=== PATIENT | female | born 2000 | race Hispanic/Latino ===

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

== ENCOUNTER 2023-11-26 17:20 | Emergency (ER) | payer BC, OTHER ==
--- OUTSIDE RECORDS SUMMARY | 2023-11-26 17:25 | XMS REPORT | Continuity of Care Document ---
Author Name Unknown Address [address] [facility] [place] [address] [facility] thconnect Address [address] [facility] [address] [place] [address] Care Team Providers Care City Letter Carrier Name Role Phone Franki Wen Primary Care Physician [phone] [email or web address] Attending Clinician Unavailable MARCELLUS BAILEY JR Attending Clinician Unavailab BUFFY Barboza Attending Clinician Unavailable Buffy Patiño NP Attending Clinician [phone] Leo Lomas DPM, Ronald E Attending Clinician + [phone] Doctor Unassigned, [place] Attending Clinician U Alona Olmedo MD Attending Clinician [phone] ALONA MARTIN Attending Clinician Unavailabl e Pob, [facility] Main Attending Clinician Unavailabl e Only, Adc Test Attending Clinician Unavailable NOE Attending Clinician Unavailable John_Martine Attending Clinician Unavailable Luis Jack Attending Clinician [phone] Cindy Prince Attending Clinician Unavailabl e Mary Mandujano Attending Clinician Unavailabl e Status, Fax Attending Clinician Unavailable Berny Anne Attending Clinician [phone] Manolo Washington Attending Clinician Unavailable Montse Gibbs Attending Clinician Unavailable Luis Mott Attending Clinician [phone] Karla Priest Attending Clinician [phone] Viktor Villanueva Attending Clinician Unavailable Tiffany Fu Attending Clinician Unavailable Adela King Attending Clinician Unavailable Marlin Patiño Attending Clinician Unavailab Fouzia Peters Attending Clinician Unavailable Tyesha Marcos Attending Clinician Unavailable Glo Spring Attending Clinician Unavailabl e Visit, [facility] Nurse Attending Clinician Unava Zaria Mckoy Attending Clinician [phone] Tawnya Davis Attending Clinician + MARCELLUS BAILEY JR Admitting Clinician Unavailab maggie Bailey Jr., Marcellus MARTINEZ Admitting Clinician + [phone] ALONA MARTIN Admitting Clinician Unavailabl e NOE Admitting Clinician Unavailable John_Martine Admitting Clinician Unavailable Luis Mott Unavailable [id number] Payers Payer Name Policy Type Policy Number Effective Date Expirati on Date Source [facility] STAR P [id number] 2018 00:00:00 [place] STAR [id number] 1993 00:00:00 [facility] STAR [id number] 2023 00:00:00 [facility] (MEDICAID REPLACEMENT - HMO) [id number] [facility] (MEDICAID REPLACEMENT - HMO) [id number] Problems Condition Name Condition Details Condition Category Status Onset Date Resolution Date Last Treatment Date Treating Clinician Comments Source Exposure to COVID-19 coronaviru s Condition Active 2019-03 00:00: 00 2020-01-25 08:44:39 Luis Mott [facility] Obesity Condition Active 2019-03 00:00: 00 2020-01-25 08:44:00 Luis Mott [facility] BMI 32.0-32.9 Condition Active 2019-03 00:00: 00 2020-01-25 08:44:00 Luis Mott [facility] Contracept ion management Condition Active 2019-03 00:00: 00 2020-01-25 08:44:00 Luis Mott [facility] Foot pain, left Condition Active 2019-03 00:00: 00 2020-01-25 08:44:00 Luis Mott [facility] Other general counseling and advice for contracept breanna management Other general counseling and advice for contracept breanna management Disease Active 04-20 00:00: 00 [facility] Irregular menstrual cycle Irregular menstrual cycle Disease Active 2017-03 00:00: 00 [facility] Well woman exam Well woman exam Disease Active 2017-03 00:00: 00 [facility] Obesity (BMI 30-39.9) Obesity (BMI 30-39.9) Disease Active 2017-03 00:00: 00 [facility] Migraine with aura Migraine with aura Disease Active 2017-03 00:00: 00 [facility] Allergies, Adverse Reactions, Alerts Allergy Name Allergy Type Status Severity Reaction(s) Onset Date Inactive Date Treating Clinician Comments Source NO KNOWN ALLERGIE S Drug Class Active [facility] Social History Social Habit Start Date Stop Date Quantity Comments Source History of tobacco use Passive smoker [facility] intake 2023-02-14 00:00:00 2023-02-14 00:00:00 Current non-drinker of alcohol (finding) [facility] History of Social function 2021-10-26 00:00:00 2021-10-26 00:00:00 [facility] Exposure to SARS-CoV-2 (event) 2021-10-14 00:00:00 2021-10-24 15:05:00 Not sure [facility] time of call 2020-04-28 10:11:46 2020-04-28 10:11:46 04/28/2020 10:12 AM [facility] social history reviewed E&M 2020-02-03 08:23:20 2020-02-03 08:23:20 reviewed - no changes required [facility] smoking, advice to quit 2020-02-03 08:23:20 2020-02-03 08:23:20 Yes [facility] Weight Management Counseling Provided 2020-02-03 08:23:20 2020-02-03 08:23:20 Follow Up Done [facility] if the patient is using/has used a vaping item, Current, Former, Never Used, Not asked 2020-01-25 08:43:08 2020-01-25 08:43:08 No [facility] social history E&M 2020-01-18 09:03:26 2020-01-18 09:03:26 Joshua lives with her professional care givers. She lives at children's home in [place]. Her parents are Single. [facility] living situation (place) description 2020-01-18 09:03:26 2020-01-18 09:03:26 children's home [facility] sexual orientation 2020-01-18 09:03:26 2020-01-18 09:03:26 Bisexual [facility] is there any chance that you could be ? 2020-01-18 09:03:26 2020-01-18 09:03:26 No [facility] Tobacco use and exposure 2019-04-20 00:00:00 2019-04-20 00:00:00 Smokeless tobacco non-user [facility] Tobacco Comment 2012-07-14 00:00:00 2012-07-14 00:00:00 smoke exposure-outside [facility] Sex Assigned At 2000 00:00:00 2000 00:00:00 [facility] Smoking Status Start Date Stop Date Source Never smoked tobacco [facility] Medications Ordered Medication Name Filled Medication Name Start Date Stop Date Current Medication? Ordering Clinician Indication Dosage Frequency Signature (SIG) Comments Components Source cephALEXin (KEFLEX) capsule 500 mg 2022-03 02:00: 00 02-15 02:20 :00 No 500mg 500 mg, Oral, ONCE, 1 dose, On Teresa 02/14/23 at 2000, DONITA
Re ason for Anti-Infec tive: Documented Infection< br>Documen gaby Infection Site: Urine
D uration of Therapy: Other (see Comments) [facility] pantoprazol e (PROTONIX) injection 40 mg 2022-03 23:15: 00 02-15 00:28 :00 No 40mg 40 mg, Slow IV Push, ONCE, 1 dose, On Teresa 02/14/23 at 1715 [facility] proMETHazin e (PHENERGAN) 12.5 mg in NS 50 mL IV piggyback (CNR) 2022-03 22:30: 00 02-15 00:47 :00 No 12.5mg 12.5 mg, IV Piggyback, at 200 mL/hr Administer over 15 Minutes, ONCE, 1 dose, On Teresa 02/14/23 at 1630, DONITA [facility] proMETHazin e 25 mg tablet 2022-03 00:00: 00 Yes [id number] 25mg Take 1 tablet by mouth every 6 (six) hours as needed for Nausea and Vomiting (N/V). [facility] cephALEXin 500 mg capsule 2022-03 00:00: 00 02-20 05:59 :00 No [id number] 500mg Take 1 capsule by mouth 4 (four) times daily for 5 days. [facility] lactated ringers IV infusion 1,000 mL 10-26 14:00: 00 Yes 1000mL at 100 mL/hr, 1,000 mL, IV Infusion, CONTINUOUS , Starting on Teresa 10/26/21 at 0900, Until Discontinu ed, Routine, PACU [facility] HYDROmorphO ne (DILAUDID) injection 0.2 mg 10-26 13:50: 24 Yes .2mg 0.2 mg, Slow IV Push, Q5MIN PRN, 10 doses, Starting on Teresa 10/26/21 at 0850, Until Discontinu ed, Routine, Pain (scale 7-10), PACU
Us e approved by (Faculty): PACU USE -ANESTHESI A SERVICE-HY DROMORPHON E INJECTIONS [facility] FENTanyl PF (SUBLIMAZE (PF)) injection 25 mcg 10-26 13:50: 24 Yes 25ug 25 mcg, Slow IV Push, Q5MIN PRN, 4 doses, Starting on Teresa 10/26/21 at 0850, Until Discontinu ed, Routine, Pain (scale 4-6), PACU [facility] ondansetron (ZOFRAN (PF)) injection 4 mg 10-26 13:50: 24 Yes 4mg 4 mg, Slow IV Push, PRN, 1 dose, Starting on Teresa 10/26/21 at 0850, Until Discontinu ed, Routine, Nausea and Vomiting (N/V), PACU [facility] bupivacaine liposome (PF) (EXPAREL (PF)) 1.3 % (13.3 mg/mL) injection 10-26 13:28: 00 10-26 13:42 :04 No PRN, Starting on Teresa 10/26/21 at 0828, Until Teresa 10/26/21 at 0842, Routine, Intra-op [facility] sodium chloride 0.9 % irrigation solution 10-26 13:01: 00 10-26 13:42 :04 No PRN, Starting on Teresa 10/26/21 at 0801, Until Teresa 10/26/21 at 0842, Intra-op [facility] bupivacaine (preserv free) 0.5% (SENSORCAIN E MPF) 0.5 % (5 mg/mL) injection 10-26 12:43: 00 10-26 13:42 :04 No PRN, Starting on Teresa 10/26/21 at 0743, Until Teresa 10/26/21 at 0842, Routine, Intra-op [facility] lactated ringers IV infusion 1,000 mL 10-26 11:30: 00 10-26 11:55 :00 No 1000mL at 42 mL/hr, 1,000 mL, IV Infusion, ONCE, 1 dose, On Teresa 10/26/21 at 0630, Routine, DSU Pre-op [facility] IRON, FERROUS SULFATE, ORAL 10-26 09:27: 20 Yes [id number] Take by mouth. [facility] aspirin 325 mg tablet 10-26 00:00: 00 11-24 04:59 :00 No [id number] 325mg Take 1 tablet by mouth in the morning and 1 tablet in the evening. Take with meals. Do all this for 28 days. [facility] IRON, FERROUS SULFATE, ORAL 10-19 15:27: 36 Yes [id number] Take by mouth. [facility] norethindro ne 0.35 mg tablet 2017-03 00:00: 00 Yes [id number] 1{tbl} Take 1 tablet by mouth daily. [facility] loratadine (CLARITIN) 10 mg tablet 2012-03 00:00: 00 Yes 10mg Take 1 Tab by mouth daily. [facility] cetirizine 10 mg tablet Take 1 tablet every day by oral route. cetirizine 10 mg tablet Take 1 tablet every day by oral route. No 1 Q1D cetirizine 10 mg tablet Take 1 tablet every day by oral route. [facility] ciprofloxac in 500 mg tablet Take 1 tablet every 12 hours by oral route for 7 days. ciprofloxac in 500 mg tablet Take 1 tablet every 12 hours by oral route for 7 days. No 1 Q12H ciprofloxa sofi 500 mg tablet Take 1 tablet every 12 hours by oral route for 7 days. [facility] fluticasone propionate 50 mcg/actuati on nasal spray,suspe nsion Candor 1 spray every day by intranasal route. fluticasone propionate 50 mcg/actuati on nasal spray,suspe nsion Candor 1 spray every day by intranasal route. No 1spray( s) Q1D fluticason e propionate 50 mcg/actuat ion nasal spray,susp ension Candor 1 spray every day by intranasal route. [facility] Immunizations Ordered Immunization Name Filled Immunization Name Date Status Comments Source Influenza Virus Vaccine Quad .5 mL IM 6+ MO 2019-04-20 00:00:00 Completed [facility] Influenza Virus Vaccine Quad .5 mL IM 6+ MO 2019-04-20 00:00:00 Completed [facility] Influenza Virus Vaccine Quad .5 mL IM 6+ MO 2019-04-20 00:00:00 Completed [facility] Influenza Virus Vaccine Quad .5 mL IM 6+ MO 2019-04-20 00:00:00 Completed [facility] Influenza Virus Vaccine Quad .5 mL IM 6+ MO 2019-04-20 00:00:00 Completed [facility] influenza, unspecified formulation 2019-04-20 00:00:00 Completed [facility] meningococcal B, unspecified 2018-12-01 00:00:00 Completed [facility] meningococcal B, unspecified 2018 00:00:00 Completed [facility] meningococcal ACWY, unspecified formulation 2018-04-07 00:00:00 Completed [facility] influenza, unspecified formulation 2016-03-15 00:00:00 Completed [facility] HPV, unspecified formulation 2016-03-15 00:00:00 Completed [facility] HPV 2014-11-03 00:00:00 Completed [facility] HPV 2014-11-03 00:00:00 Completed [facility] HPV 2014-11-03 00:00:00 Completed [facility] HPV 2014-11-03 00:00:00 Completed [facility] HPV 2014-11-03 00:00:00 Completed [facility] HPV, unspecified formulation 2014-11-03 00:00:00 Completed [facility] Influenza Virus Vaccine Nasal 2012-12-24 00:00:00 Completed [facility] TDAP 2012-12-24 00:00:00 Completed [facility] Meningococcal Polysaccharide (groups A, C, Y and W-135) conjugate vaccine (MCV4P) 2012-12-24 00:00:00 Completed [facility] HPV 2012-12-24 00:00:00 Completed [facility] Influenza Virus Vaccine Nasal 2012-12-24 00:00:00 Completed [facility] TDAP 2012-12-24 00:00:00 Completed [facility] Meningococcal Polysaccharide (groups A, C, Y and W-135) conjugate vaccine (MCV4P) 2012-12-24 00:00:00 Completed [facility] HPV 2012-12-24 00:00:00 Completed [facility] Influenza Virus Vaccine Nasal 2012-12-24 00:00:00 Completed [facility] TDAP 2012-12-24 00:00:00 Completed [facility] Meningococcal Polysaccharide (groups A, C, Y and W-135) conjugate vaccine (MCV4P) 2012-12-24 00:00:00 Completed [facility] HPV 2012-12-24 00:00:00 Completed [facility] Influenza Virus Vaccine Nasal 2012-12-24 00:00:00 Completed [facility] TDAP 2012-12-24 00:00:00 Completed [facility] Meningococcal Polysaccharide (groups A, C, Y and W-135) conjugate vaccine (MCV4P) 2012-12-24 00:00:00 Completed [facility] HPV 2012-12-24 00:00:00 Completed [facility] Influenza Virus Vaccine Nasal 2012-12-24 00:00:00 Completed [facility] TDAP 2012-12-24 00:00:00 Completed [facility] Meningococcal Polysaccharide (groups A, C, Y and W-135) conjugate vaccine (MCV4P) 2012-12-24 00:00:00 Completed [facility] HPV 2012-12-24 00:00:00 Completed [facility] Tdap 2012-12-24 00:00:00 Completed [facility] meningococcal ACWY, unspecified formulation 2012-12-24 00:00:00 Completed [facility] influenza, unspecified formulation 2012-12-24 00:00:00 Completed [facility] HPV, unspecified formulation 2012-12-24 00:00:00 Completed [facility] influenza, unspecified formulation 2011-12-20 00:00:00 Completed [facility] influenza, unspecified formulation 2010-12-14 00:00:00 Completed [facility] influenza, unspecified formulation 2009-02-24 00:00:00 Completed [facility] Varicella (varivax)(chicken pox) 2007-04-15 00:00:00 Completed [facility] varicella 2007-04-15 00:00:00 Completed [facility] Influenza Virus Vaccine - Whole 2007-01-28 00:00:00 Completed [facility] influenza, unspecified formulation 2007-01-28 00:00:00 Completed [facility] MMR 2005-10-31 00:00:00 Completed [facility] Polio (IPV/OPV) 2005-10-31 00:00:00 Completed [facility] DTAP 2005-10-31 00:00:00 Completed [facility] polio, unspecified formulation 2005-10-31 00:00:00 Completed [facility] 03 2005-10-31 00:00:00 Completed [facility] DTaP, unspecified formulation 2005-10-31 00:00:00 Completed [facility] HEPATITIS A 2005-06-19 00:00:00 Completed [facility] Hep A, unspecified formulation 2005-06-19 00:00:00 Completed [facility] HEPATITIS A 2004-12-01 00:00:00 Completed [facility] Hep A, unspecified formulation 2004-12-01 00:00:00 Completed [facility] DTAP 2003-02-22 00:00:00 Completed [facility] HIB 4 Dose Schedule 2003-02-22 00:00:00 Completed [facility] Pneumococcal 7 Conjugate, PCV7 (Prevnar7) 2003-02-22 00:00:00 Completed [facility] DTAP 2003-02-22 00:00:00 Completed [facility] HIB 4 Dose Schedule 2003-02-22 00:00:00 Completed [facility] Pneumococcal 7 Conjugate, PCV7 (Prevnar7) 2003-02-22 00:00:00 Completed [facility] DTAP 2003-02-22 00:00:00 Completed [facility] HIB 4 Dose Schedule 2003-02-22 00:00:00 Completed [facility] Pneumococcal 7 Conjugate, PCV7 (Prevnar7) 2003-02-22 00:00:00 Completed [facility] DTAP 2003-02-22 00:00:00 Completed [facility] HIB 4 Dose Schedule 2003-02-22 00:00:00 Completed [facility] Pneumococcal 7 Conjugate, PCV7 (Prevnar7) 2003-02-22 00:00:00 Completed [facility] DTAP 2003-02-22 00:00:00 Completed [facility] HIB 4 Dose Schedule 2003-02-22 00:00:00 Completed [facility] Pneumococcal 7 Conjugate, PCV7 (Prevnar7) 2003-02-22 00:00:00 Completed [facility] pneumococcal, unspecified formulation 2003-02-22 00:00:00 Completed [facility] Hib, unspecified formulation 2003-02-22 00:00:00 Completed [facility] DTaP, unspecified formulation 2003-02-22 00:00:00 Completed [facility] DTAP 2002-11-18 00:00:00 Completed [facility] HIB 4 Dose Schedule 2002-11-18 00:00:00 Completed [facility] Hep B, Adol or Pedi Dosage 2002-11-18 00:00:00 Completed [facility] MMR 2002-11-18 00:00:00 Completed [facility] Polio (IPV/OPV) 2002-11-18 00:00:00 Completed [facility] Varicella (varivax)(chicken pox) 2002-11-18 00:00:00 Completed [facility] DTAP 2002-11-18 00:00:00 Completed [facility] HIB 4 Dose Schedule 2002-11-18 00:00:00 Completed [facility] Hep B, Adol or Pedi Dosage 2002-11-18 00:00:00 Completed [facility] MMR 2002-11-18 00:00:00 Completed [facility] Polio (IPV/OPV) 2002-11-18 00:00:00 Completed [facility] Varicella (varivax)(chicken pox) 2002-11-18 00:00:00 Completed [facility] DTAP 2002-11-18 00:00:00 Completed [facility] HIB 4 Dose Schedule 2002-11-18 00:00:00 Completed [facility] Hep B, Adol or Pedi Dosage 2002-11-18 00:00:00 Completed [facility] MMR 2002-11-18 00:00:00 Completed [facility] Polio (IPV/OPV) 2002-11-18 00:00:00 Completed [facility] Varicella (varivax)(chicken pox) 2002-11-18 00:00:00 Completed [facility] DTAP 2002-11-18 00:00:00 Completed [facility] HIB 4 Dose Schedule 2002-11-18 00:00:00 Completed [facility] Hep B, Adol or Pedi Dosage 2002-11-18 00:00:00 Completed [facility] MMR 2002-11-18 00:00:00 Completed [facility] Polio (IPV/OPV) 2002-11-18 00:00:00 Completed [facility] Varicella (varivax)(chicken pox) 2002-11-18 00:00:00 Completed [facility] DTAP 2002-11-18 00:00:00 Completed [facility] HIB 4 Dose Schedule 2002-11-18 00:00:00 Completed [facility] Hep B, Adol or Pedi Dosage 2002-11-18 00:00:00 Completed [facility] MMR 2002-11-18 00:00:00 Completed [facility] Polio (IPV/OPV) 2002-11-18 00:00:00 Completed [facility] Varicella (varivax)(chicken pox) 2002-11-18 00:00:00 Completed [facility] varicella 2002-11-18 00:00:00 Completed [facility] polio, unspecified formulation 2002-11-18 00:00:00 Completed [facility] 03 2002-11-18 00:00:00 Completed [facility] Hib, unspecified formulation 2002-11-18 00:00:00 Completed [facility] Hep B, unspecified formulation 2002-11-18 00:00:00 Completed [facility] DTaP, unspecified formulation 2002-11-18 00:00:00 Completed [facility] DTAP 2002-04-10 00:00:00 Completed [facility] HIB 4 Dose Schedule 2002-04-10 00:00:00 Completed [facility] Polio (IPV/OPV) 2002-04-10 00:00:00 Completed [facility] DTAP 2002-04-10 00:00:00 Completed [facility] HIB 4 Dose Schedule 2002-04-10 00:00:00 Completed [facility] Polio (IPV/OPV) 2002-04-10 00:00:00 Completed [facility] DTAP 2002-04-10 00:00:00 Completed [facility] HIB 4 Dose Schedule 2002-04-10 00:00:00 Completed [facility] Polio (IPV/OPV) 2002-04-10 00:00:00 Completed [facility] DTAP 2002-04-10 00:00:00 Completed [facility] HIB 4 Dose Schedule 2002-04-10 00:00:00 Completed [facility] Polio (IPV/OPV) 2002-04-10 00:00:00 Completed [facility] DTAP 2002-04-10 00:00:00 Completed [facility] HIB 4 Dose Schedule 2002-04-10 00:00:00 Completed [facility] Polio (IPV/OPV) 2002-04-10 00:00:00 Completed [facility] polio, unspecified formulation 2002-04-10 00:00:00 Completed [facility] Hib, unspecified formulation 2002-04-10 00:00:00 Completed [facility] DTaP, unspecified formulation 2002-04-10 00:00:00 Completed [facility] DTAP 2001 00:00:00 Completed [facility] HIB 4 Dose Schedule 2001 00:00:00 Completed [facility] Hep B, Adol or Pedi Dosage 2001 00:00:00 Completed [facility] Polio (IPV/OPV) 2001 00:00:00 Completed [facility] Pneumococcal 7 Conjugate, PCV7 (Prevnar7) 2001 00:00:00 Completed [facility] DTAP 2001 00:00:00 Completed [facility] HIB 4 Dose Schedule 2001 00:00:00 Completed [facility] Hep B, Adol or Pedi Dosage 2001 00:00:00 Completed [facility] Polio (IPV/OPV) 2001 00:00:00 Completed [facility] Pneumococcal 7 Conjugate, PCV7 (Prevnar7) 2001 00:00:00 Completed [facility] DTAP 2001 00:00:00 Completed [facility] HIB 4 Dose Schedule 2001 00:00:00 Completed [facility] Hep B, Adol or Pedi Dosage 2001 00:00:00 Completed [facility] Polio (IPV/OPV) 2001 00:00:00 Completed [facility] Pneumococcal 7 Conjugate, PCV7 (Prevnar7) 2001 00:00:00 Completed [facility] DTAP 2001 00:00:00 Completed [facility] HIB 4 Dose Schedule 2001 00:00:00 Completed [facility] Hep B, Adol or Pedi Dosage 2001 00:00:00 Completed [facility] Polio (IPV/OPV) 2001 00:00:00 Completed [facility] Pneumococcal 7 Conjugate, PCV7 (Prevnar7) 2001 00:00:00 Completed [facility] DTAP 2001 00:00:00 Completed [facility] HIB 4 Dose Schedule 2001 00:00:00 Completed [facility] Hep B, Adol or Pedi Dosage 2001 00:00:00 Completed [facility] Polio (IPV/OPV) 2001 00:00:00 Completed [facility] Pneumococcal 7 Conjugate, PCV7 (Prevnar7) 2001 00:00:00 Completed [facility] polio, unspecified formulation 2001 00:00:00 Completed [facility] pneumococcal, unspecified formulation 2001 00:00:00 Completed [facility] Hib, unspecified formulation 2001 00:00:00 Completed [facility] Hep B, unspecified formulation 2001 00:00:00 Completed [facility] DTaP, unspecified formulation 2001 00:00:00 Completed [facility] Hep B, Adol or Pedi Dosage 2001 00:00:00 Completed [facility] Hep B, Adol or Pedi Dosage 2001 00:00:00 Completed [facility] Hep B, Adol or Pedi Dosage 2001 00:00:00 Completed [facility] Hep B, Adol or Pedi Dosage 2001 00:00:00 Completed [facility] Hep B, Adol or Pedi Dosage 2001 00:00:00 Completed [facility] Hep B, unspecified formulation 2001 00:00:00 Completed [facility] Influenza Virus Vaccine Nasal Unknown Completed [facility] TDAP Unknown Completed [facility] Meningococcal Polysaccharide (groups A, C, Y and W-135) conjugate vaccine (MCV4P) Unknown Completed [facility] HPV Unknown Completed [facility] DTAP Unknown Completed [facility] DTAP Unknown Completed [facility] DTAP Unknown Completed [facility] DTAP Unknown Completed [facility] HIB 4 Dose Schedule Unknown Completed [facility] HIB 4 Dose Schedule Unknown Completed [facility] HIB 4 Dose Schedule Unknown Completed [facility] HIB 4 Dose Schedule Unknown Completed [facility] Hep B, Adol or Pedi Dosage Unknown Completed [facility] Hep B, Adol or Pedi Dosage Unknown Completed [facility] Hep B, Adol or Pedi Dosage Unknown Completed [facility] MMR Unknown Completed [facility] Polio (IPV/OPV) Unknown Completed [facility] Polio (IPV/OPV) Unknown Completed [facility] Polio (IPV/OPV) Unknown Completed [facility] Varicella (varivax)(chicken pox) Unknown Completed [facility] Pneumococcal 7 Conjugate, PCV7 (Prevnar7) Unknown Completed [facility] Pneumococcal 7 Conjugate, PCV7 (Prevnar7) Unknown Completed [facility] HPV Unknown Completed [facility] Influenza Virus Vaccine Quad .5 mL IM 6+ MO (FLUZONE/FLULAVAL/FL UARIX) Unknown Completed [facility] Vital Signs Vital Name Observation Time Observation Value Comments S ource Systolic blood pressure 2023-02-15 02:00:00 115 mm[Hg] [facility] Diastolic blood pressure 2023-02-15 02:00:00 67 mm[Hg] [facility] Heart rate 2023-02-15 02:00:00 79 /min [facility] Body temperature 2023-02-15 02:00:00 36.44 Mraía [facility] Oxygen saturation in Arterial blood by Pulse oximetry 2023-02-15 02:00:00 100 /min [facility] Respiratory rate 2023-02-15 00:15:00 16 /min [facility] Body height 2023-02-14 22:00:00 170.2 cm [facility] Body weight 2023-02-14 22:00:00 100.426 kg [facility] BMI 2023-02-14 22:00:00 34.68 kg/m2 [facility] Heart rate 2021-10-26 14:16:00 83 /min [facility] Respiratory rate 2021-10-26 14:16:00 11 /min [facility] Oxygen saturation in Arterial blood by Pulse oximetry 2021-10-26 14:16:00 98 /min [facility] Systolic blood pressure 2021-10-26 14:13:00 139 mm[Hg] [facility] Diastolic blood pressure 2021-10-26 14:13:00 72 mm[Hg] [facility] Body temperature 2021-10-26 13:42:00 36.83 María [facility] Body height 2021-10-23 13:24:00 168.9 cm [facility] Body weight 2021-10-23 13:24:00 95.3 kg [facility] BMI 2021-10-23 13:24:00 33.41 kg/m2 [facility] Systolic blood pressure 2021-10-26 11:54:00 139 mm[Hg] [facility] Diastolic blood pressure 2021-10-26 11:54:00 77 mm[Hg] [facility] Heart rate 2021-10-26 11:54:00 92 /min [facility] Body temperature 2021-10-26 11:54:00 37.33 María [facility] Respiratory rate 2021-10-26 11:54:00 20 /min [facility] Oxygen saturation in Arterial blood by Pulse oximetry 2021-10-26 11:54:00 98 /min [facility] Body height 2021-10-23 13:24:00 168.9 cm [facility] Body weight 2021-10-23 13:24:00 95.3 kg [facility] BMI 2021-10-23 13:24:00 33.41 kg/m2 [facility] Height 2020-12-03 00:00:00 5.7 [in_i] [facility] BMI (Body Mass Index) 2020-12-03 00:00:00 4517.1 kg/m2 [facility] BP Systolic 2020-12-03 00:00:00 136 mm[Hg] [facility] Body Weight 2020-12-03 00:00:00 3340.8 [oz_av] [facility] BP Diastolic 2020-12-03 00:00:00 87 mm[Hg] [facility] temperature site 2020-02-03 08:23:20 temporal [facility] temperature E&M 2020-02-03 08:23:20 97.7 [degF] [facility] temperature E&M 2020-01-25 08:43:08 97.5 [degF] [facility] height percentile 2020-01-18 09:03:26 58 [facility] height E&M 2020-01-18 09:03:26 64.76 [in_i] [facility] weight percentile 2020-01-18 09:03:26 97 [facility] weight in kilograms E&M 2020-01-18 09:03:26 86.6 kg [facility] weight E&M 2020-01-18 09:03:26 190.52 [lb_av] L [facility] blood pressure, diastolic 2020-01-18 09:03:26 70 mm[Hg] [facility] blood pressure, systolic 2020-01-18 09:03:26 107 mm[Hg] [facility] temperature site 2020-01-18 09:03:26 oral [facility] respiratory rate E&M 2020-01-18 09:03:26 20 /min [facility] pulse rate 2020-01-18 09:03:26 117 /min [facility] oxygen saturation, oximetry 2020-01-18 09:03:26 98 /min [facility] Procedures Procedure Date / Time Performed Performing Clinician Source URINALYSIS 2023-02-15 00:37:00 Buffy Patiño [facility] POCT TEST 2023-02-15 00:36:00 Buffy Patiño [facility] LIPASE 2023-02-14 22:54:00 Buffy Patiño [facility] COMP. METABOLIC PANEL (62575) 2023-02-14 22:54:00 Bfufy Patiño [facility] CBC WITH DIFF 2023-02-14 22:54:00 Buffy Patiño [facility] ASSIGNMENT OF BENEFITS 2023-02-14 22:25:53 Docto r Unassigned, [place] [facility] CONSENT/REFUSAL FOR DIAGNOSIS AND TREATMENT 2023-02-14 21:40:00 Doctor Unassigned, [place] [facility] TIME OR (NON-REPORTABLE) 2021-10-26 13:35:00 Marcellus Bailey [facility] FL TIME OR (NON-REPORTABLE) 2021-10-26 13:35:00 Marcellus Bailey [facility] METATARSAL OSTEOTOMY 2021-10-26 12:18:00 Marcellus Bailey [facility] URINALYSIS 2021-10-26 11:43:00 Marcellus Bailey [facility] URINALYSIS 2021-10-26 11:43:00 Marcellus Bailey [facility] POCT TEST 2021-10-26 11:30:00 Michael Ayala [facility] POCT TEST 2021-10-26 11:30:00 Michael Ayala [facility] PATIENT QUESTIONNAIRE 2021-10-26 05:01:00 Doctor Unassigned, [place] [facility] EKG (SCANNED DOCUMENTS) 2021-10-25 05:01:00 Doct or Unassigned, [place] [facility] CBC WITH DIFF 2021-10-24 20:38:00 Marcellus Bailey [facility] PROTHROMBIN TIME / INR 2021-10-24 20:38:00 Michelle Bailey [facility] ACTIVATED PARTIAL THRMPLAS CHIRAG 2021-10-24 20:38:00 Marcellus Bailey [facility] COVID-19 (ID NOW RAPID TESTING) 2021-10-24 20:38:00 Marcellus Bailey [facility] COMP. METABOLIC PANEL (32876) 2021-10-24 20:38:00 Marcellus Bailey [facility] LAB ONLY COVID INTERPRETATION 2021-10-24 20:38:00 Marcellus Bailey [facility] CONSENT/REFUSAL FOR DIAGNOSIS AND TREATMENT 2021-10-24 20:04:22 Doctor Unassigned, [place] [facility] CONSENT/REFUSAL FOR DIAGNOSIS AND TREATMENT 2021-10-24 20:04:22 Doctor Unassigned, [place] [facility] ASSIGNMENT OF BENEFITS 2021-10-24 20:02:23 Docto r Unassigned, [place] [facility] ASSIGNMENT OF BENEFITS 2021-10-24 20:02:23 Docto r Unassigned, [place] [facility] NOTICE OF PRIVACY PRACTICES 2021-10-24 20:01:58 Doctor Unassigned, [place] [facility] NOTICE OF PRIVACY PRACTICES 2021-10-24 20:01:58 Doctor Unassigned, [place] [facility] CONSENT/REFUSAL FOR DIAGNOSIS AND TREATMENT 2021-10-24 20:01:32 Doctor Unassigned, [place] [facility] CONSENT/REFUSAL FOR DIAGNOSIS AND TREATMENT 2021-10-24 20:01:32 Doctor Unassigned, [place] [facility] ASSIGNMENT OF BENEFITS 2021-10-24 20:01:09 Docto r Unassigned, [place] [facility] ASSIGNMENT OF BENEFITS 2021-10-24 20:01:09 Docto r Unassigned, [place] [facility] EXTERNAL PROVIDER RECORDS 2021-10-19 05:01:00 Do ctor Unassigned, [place] [facility] EXTERNAL PROVIDER RECORDS 2021-10-19 05:01:00 Do ctor Unassigned, [place] [facility] Urinalysis - - In House 2020-01-18 09:16:36 Luis Mott [facility] Planned Activity Planned Date Details Comments Source Diagnostic Test Pending 2020-12-03 00:00:00 rapid influenza virus A + B and SARS CoV + SARS CoV 2 Ag panel, [place], upper respiratory specimen [code = rapid influenza virus A + B and SARS CoV + SARS CoV 2 Ag panel, IA, upper respiratory specimen] [facility] Instructions [facility] Encounters Start Date/Time End Date/Time Encounter Type Admission Type Attending [facility] Facility Care Department Encounter ID Source 2022-02-26 20:41:13 Outpatient quoc [facility] [id number] [facility] 2022-02-09 20:11:07 [facility] [id number] [facility] 2021-10-20 09:34:57 Outpatient MARCELLUS CURIEL JR [facility] S[facility] [id number] [facility] 2023-02-14 16:04:00 2023-02-14 20:28:00 Emergency X BUFFY PATIÑO [facility] ERT [id number] [facility] 2023-02-14 16:04:00 2023-02-14 20:28:00 Emergency Sourav Buffy G [facility] [id number] [id number] [facility] 2021-10-26 06:27:00 2021-10-26 09:26:00 Outpatient MARCELLUS CURIEL JR [facility] [id number] [facility] 2021-10-26 06:27:00 2021-10-26 09:26:00 Hospital Encounter Marcellus Bailey [facility] [id number] 4.2.7.2.686 [id number] [facility] 2021-10-26 07:15:00 2021-10-26 08:41:00 Surgery Marcellus Bailey [facility] [place] [id number] [id number] [id number] [id number] [facility] 2021-10-26 00:00:00 2021-10-26 00:00:00 Orders Only Doctor Unassigned, [place] [facility] [id number] [id number] 4.2.7.2.686 [id number] [facility] 2021-10-25 17:53:00 2021-10-25 23:59:00 Hospital Encounter Alona Martin [facility] [id number] [id number] 4.2.7.2.686 [id number] [facility] 2021-10-25 00:00:00 2021-10-25 23:59:00 Outpatient ALONA MENA [facility] [id number] [facility] 2021-10-24 15:07:05 2021-10-24 23:59:00 Hospital Encounter Marcellus Bailey [facility] [id number] 4.2.7.2.686 [id number] [facility] 2021-10-24 16:00:00 2021-10-24 16:15:00 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, Adc Lab Main Marcellus Bailey [facility] [id number] [id number] 4.2.7.2.686 [id number] [facility] 2021-10-24 15:45:00 2021-10-24 16:00:00 Laboratory Only Only, Adc Test Leo Marcellus Alvarado [facility] [id number] [id number] [id number] [id number] [facility] 2021-10-24 15:07:05 2021-10-24 15:07:05 Outpatient MARCELLUS CURIEL JR [facility] [id number] [facility] 2021-10-24 15:08:27 2021-10-24 15:06:00 Outpatient MARCELLUS CURIEL JR [facility] [id number] [facility] 2021-09-26 04:13:00 2021-09-26 04:13:00 Outpatient NOE [facility] [id number] [facility] 2020-12-03 00:00:00 2020-12-03 00:00:00 Cherelle Lopez, [employer]: [address] [place] [address], [place] [address] , Ph. John_Martine [facility] [id number] [facility] 2020-05-27 00:00:00 2020-05-27 00:00:00 Letter (Out) Luis Mott [facility] ..114 350..13.10 [id number] [id number] [facility] 2020-04-28 00:00:00 2020-04-28 00:00:00 Office Visit Cindy Prince Vianey [facility] Encounter/ [id number] [facility] 2020-04-25 00:00:00 2020-04-25 00:00:00 Orders Only Doctor Unassigned, [place] [facility] .84.114 [id number] 4.2.7.2.686 [id number] [facility] 2020-04-25 00:00:00 2020-04-25 00:00:00 Office Visit Status, Fax [facility] Encounter/ [id number] [facility] 2020-04-25 00:00:00 2020-04-25 00:00:00 Office Visit Status, Fax [facility] Encounter/ [id number] [facility] 2020-04-25 00:00:00 2020-04-25 00:00:00 Office Visit Status, Fax [facility] Encounter/ [id number] [facility] 2020-02-29 00:00:00 2020-02-29 00:00:00 Office Visit Berny Anne [facility] Encounter/ [id number] [facility] 2020-02-25 00:00:00 2020-02-25 00:00:00 Office Visit Status, Fax [facility] Encounter/ [id number] [facility] 2020-02-25 00:00:00 2020-02-25 00:00:00 Office Visit Status, Fax [facility] Encounter/ [id number] [facility] 2020-02-25 00:00:00 2020-02-25 00:00:00 Office Visit Status, Fax [facility] Encounter/ [id number] [facility] 2020-02-08 00:00:00 2020-02-08 00:00:00 Office Visit Berny Anne [facility] Encounter/ [id number] [facility] 2020-02-03 00:00:00 2020-02-03 00:00:00 Office Visit Berny Anne [facility] Encounter/ [id number] [facility] 2020-02-03 00:00:00 2020-02-03 00:00:00 Office Visit Berny Anne Elia Franklin, Ciara [facility] Encounter/ [id number] [facility] 2020-02-03 00:00:00 2020-02-03 00:00:00 Office Visit Luis Mott [facility] Encounter/ [id number] [facility] 2020-02-01 00:00:00 2020-02-01 00:00:00 Office Visit Reyes Hamilton Nolviahema [facility] Encounter/ [id number] [facility] 2020-01-27 00:00:00 2020-01-27 00:00:00 Office Visit Karla Priest [facility] Encounter/ [id number] [facility] 2020-01-26 00:00:00 2020-01-26 00:00:00 [facility] [id number] [facility] 2020-01-25 00:00:00 2020-01-25 00:00:00 Office Visit Luis Mott [facility] Encounter/ [id number] [facility] 2020-01-25 00:00:00 2020-01-25 00:00:00 Office Visit Luis Mott Rachel [facility] Encounter/ [id number] [facility] 2020-01-25 00:00:00 2020-01-25 00:00:00 Office Visit Luis Mott [facility] Encounter/ [id number] [facility] 2020-01-22 00:00:00 2020-01-22 00:00:00 Office Visit Luis Mott Angel [facility] Encounter/ [id number] [facility] 2020-01-20 00:00:00 2020-01-20 00:00:00 Office Visit Luis Mott [facility] Encounter/ [id number] [facility] 2020-01-20 00:00:00 2020-01-20 00:00:00 Office Visit Luis Mott [facility] Encounter/ [id number] [facility] 2020-01-19 00:00:00 2020-01-19 00:00:00 Office Visit Luis Mott [facility] Encounter/ [id number] [facility] 2020-01-18 00:00:00 2020-01-18 00:00:00 Office Visit Luis Mott [facility] Encounter/ [id number] [facility] 2020-01-18 00:00:00 2020-01-18 00:00:00 Office Visit Luis Mott [facility] Encounter/ [id number] [facility] 2020-01-18 00:00:00 2020-01-18 00:00:00 Office Visit Luis Mott [facility] Encounter/ [id number] [facility] 2020-01-18 00:00:00 2020-01-18 00:00:00 Office Visit Luis Mott, Tiffany King, Adela [facility] Encounter/ [id number] [facility] 2020-01-18 00:00:00 2020-01-18 00:00:00 Office Visit Luis Mott [facility] Encounter/ [id number] [facility] 2020-01-12 00:00:00 2020-01-12 00:00:00 Office Visit Marlin Patiño, Fouzia Prince, Tyesha Morataya [facility] Encounter/ [id number] [facility] 2019-10-24 00:00:00 2019-10-24 00:00:00 Office Visit Glo Spring [facility] Encounter/ [id number] [facility] 2019-10-24 00:00:00 2019-10-24 00:00:00 Office Visit Luis Mott [facility] Encounter/ [id number] [facility] 2019-10-06 15:30:00 2019-10-06 15:30:00 Outpatient R [facility] [id number] [facility] 2019-07-13 15:30:00 2019-07-13 15:30:00 Outpatient R [facility] [id number] [facility] 2019-07-13 14:59:32 2019-07-13 15:14:32 Nurse Visit Visit, [facility] Nurse Zaria Mackenzie [facility] [facility]ATE [facility] 1.2.840.114 350.1.13.10 4.2.7.2.686 [id number] [facility] 2019-07-13 14:59:32 2019-07-13 15:14:32 [facility] 1.2.840.114 350.1.13.10 4.2.7.2.686 [id number] 2019-07-10 00:00:00 2019-07-10 00:00:00 [facility] 1.2.840.114 350.1.13.10 4.2.7.2.686 [id number] [facility] 2019-07-10 00:00:00 2019-07-10 00:00:00 [facility] 1.2.840.114 350.1.13.10 4.2.7.2.686 [id number] 2019-04-20 16:16:30 2019-04-20 17:38:39 Office Visit Tawnya Aguiar [facility] 1.2.840.114 350.1.13.10 4.2.7.2.686 [id number] [facility] 2019-04-20 16:16:30 2019-04-20 17:38:39 Office Visit Tawnya Aguiar [facility] 1.2.840.114 350.1.13.10 4.2.7.2.686 [id number] 2019-04-20 00:00:2019-04-20 00:00:00 Orders Only Doctor Unassigned, [facility] 1.2.840.114 350.1.13.10 4.2.7.2.686 [id number] [id number] [facility] 2019-04-08 00:00:00 2019-04-08 00:00:00 Telephone Tawnya Aguiar Claritza [facility] 1.2.840.114 350.1.13.10 4.2.7.2.686 [id number] 107 [id number] [facility] 2018-11-04 00:00:00 2018-11-04 00:00:00 Orders Only Doctor Unassigned, [facility] 1.2.840.114 350.1.13.10 4.2.7.2.686 [id number] [id number] [facility] 2018-10-13 09:17:17 2018-10-13 10:56:57 Office Visit Bea Aguiarakil Jerry [facility] 1.2.840.114 350.1.13.10 4.2.7.2.686 [id number] [facility] 2018-10-13 00:00:00 2018-10-13 00:00:00 Orders Only Doctor Unassigned, [facility] 1.2.840.114 350.1.13.10 4.2.7.2.686 [id number] [facility] Orders Only Doctor Unassigned, [facility] 1.2.840.114 350.1.13.10 4.2.7.2.686 [id number] [facility] Results Test Description Test Time Test Comments Results Result Co mments Source [facility] METABOLIC PANEL (36054)2023-02-14 23:35:07* Test Item Value Reference Range Interpretation Comme nts NA (test code = 1866585278) 140 mmol/L 135-145 K (test code = 8930767184) 4.3 mmol/L 3.5-5.0 CL (test code = 4575650469) 106 mmol/L 98-108 CO2 TOTAL (test code = 6958059588) 25 mmol/L 23-31 AGAP (test code = 2791412810) 9 2-16 BUN (test code = 4520497524) 9 mg/dL 7-23 GLUCOSE (test code = 0018819739) 103 mg/dL 70-110 CREATININE (test code = 4629079955) 0.67 mg/dL 0.50-1.04 TOTAL BILI (test code = 3583115307) 0.4 mg/dL 0.1-1.1 CALCIUM (test code = 6321186215) 9.6 mg/dL 8.6-10.6 T PROTEIN (test code = 6863710880) 8.5 g/dL 6.3-8.2 H ALBUMIN (test code = 6622533273) 4.7 g/dL 3.5-5.0 ALK PHOS (test code = 4781434589) 117 U/L 34-122 ALTv (test code = 1742-6) 16 U/L 5-35 AST(SGOT) (test code = 8856168880) 34 U/L 13-40 eGFR (test code = 54074-4) 127.7 mL/min/1.73m2 CKD-EPI eGFR (2020). Assuming creatinine has been stable day-to-day for at least three months, the eGFR indicates Category G1 (>= 90 mL/min/1.73 m2) Lab Interpretation (test code = 89864-6) Abnormal [facility]2023-11-30 23:34:26* Test Item Value Reference Range Interpretation Comme nts LIPASE (test code = 8519683076) 124 U/L 0-220 Lab Interpretation (test cod e = 96337-6) Normal [facility] WITH [id number] 23:33:45* Test Item Value Reference Range Interpretation Comme nts WBC (test code = 6690-2) 11.98 See_Comment H [Automated message] The system which generated this result transmitted reference range: 4.30 - 11.10 10*3/?L. The reference range was not used to interpret this result as normal/abnormal. RBC (test code = 789-8) 4.43 See_Comment [Automated message] The system which generated this result transmitted reference range: 3.93 - 5.25 10*6/?L. The reference range was not used to interpret this result as normal/abnormal. HGB (test code = 718-7) 9.9 g/dL 11.6-15.0 L HCT (test code = 4544-3) 32.6 % 35.7-45.2 L MCV (test code = 787-2) 73.6 fL 80.6-95.5 L MCH (test code = 785-6) 22.3 pg 25.9-32.8 L MCHC (test code = 786-4) 30.4 g/dL 31.6-35.1 L RDW-SD (test code = 27294-2) 42.5 fL 39.0-49.9 RDW-CV (test code = 788-0) 16.0 % 12.0-15.5 H PLT (test code = 777-3) 424 See_Comment H [Automated message] The system which generated this result transmitted reference range: 166 - 358 10*3/?L. The reference range was not used to interpret this result as normal/abnormal. MPV (test code = 44371-2) 9.7 fL 9.5-12.9 NRBC/100 WBC (test code = 5530260258) 0.0 See_Comment [Automated message] The system which generated this result transmitted reference range: 0.0 - 10.0 /100 WBCs. The reference range was not used to interpret this result as normal/abnormal. NRBC x10^3 (test code = 7182882248) See_Comment [Automated message] The system which generated this result transmitted reference range: 10*3/?L. The reference range was not used to interpret this result as normal/abnormal. GRAN MAT (NEUT) % (test code = 770-8) 86.6 % IMM GRAN % (test code = 0965443746) 0.40 % LYMPH % (test code = 736-9) 9.1 % MONO % (test code = 5905-5) 3.2 % EOS % (test code = 713-8) 0.4 % BASO % (test code = 706-2) 0.3 % GRAN MAT x10^3(ANC) (test code = 8498829733) 10.38 10*3/uL 1.88-7.09 H IMM GRAN x10^3 (test code = 7410170189) 0.05 10*3/uL 0.00-0.06 LYMPH x10^3 (test code = 731-0) 1.09 10*3/uL 1.32-3.29 L MONO x10^3 (test code = 742-7) 0.38 10*3/uL 0.33-0.92 EOS x10^3 (test code = 711-2) 0.05 10*3/uL 0.03-0.39 BASO x10^3 (test code = 704-7) 0.03 10*3/uL 0.01-0.07 Lab Interpretation (test code = 04665-6) Abnormal [facility] [id number] 11:30:00* Test Item Value Reference Range Interpretation Comme nts POCT PREG (test code = 1605) Negative On board controls acceptable with C Line (test code = 3574) Yes POCT PREG LOT # (test code = 3575) [id number] POCT PREG TEST DATE ( test code = 3576) [facility] [id number] 11:30:00* Test Item Value Reference Range Interpretation Comme nts POCT PREG (test code = 1605) Negative On board controls acceptable with C Line (test code = 3574) Yes POCT PREG LOT # (test code = 3575) [id number] POCT PREG TEST DATE ( test code = 3576) [facility]. METABOLIC PANEL (89697)2021-10-25 00:56:04* Test Item Value Reference Range Interpretation Comme nts NA (test code = 7753494105) 140 mmol/L 135-145 K (test code = 2016448559) 4.4 mmol/L 3.5-5 CL (test code = 8533905487) 104 mmol/L 98-108 CO2 TOTAL (test code = 8278710734) 25 mmol/L 23-31 AGAP (test code = 6976910724) 2-16 BUN (test code = 2378135012) 10 mg/dL 7-23 GLUCOSE (test code = 8279647949) 98 mg/dL 70-110 CREATININE (test code = 0300711987) 0.67 mg/dL 0.5-1.04 TOTAL BILI (test code = 0302269491) 0.3 mg/dL 0.1-1.1 CALCIUM (test code = 1018633090) 9.5 mg/dL 8.6-10.6 T PROTEIN (test code = 2518661133) 7.3 g/dL 6.3-8.2 ALBUMIN (test code = 1441869330) 4.4 g/dL 3.5-5 ALK PHOS (test code = 6562463820) 110 U/L 34-122 ALTv (test code = 1742-6) 17 U/L 5-35 AST(SGOT) (test code = 5657217388) 35 U/L 13-40 eGFR (test code = 8482907763) mL/min/1.73m2 LIANA (test code = LIANA) Association of Glomerular Filtration Rate (GFR) and Staging of Kidney Disease* + + +- +| GFR (mL/min/1.73 m2) ?| With Kidney Damage ?| ?Without Kidney Damage+ ------+ ----+ ------+| ?>90 ?| ?Stage one ?| ? Normal ?+ -+ + -+| ?60-89 ?| ?Stage two ?| ? Decreased GFR ? + + +- +| ?30-59 ?| ?Stage three ?| ? Stage three ? + + +- +| ?15-29 ?| ?Stage four ? | ? Stage four ?+ -+ + -+| ?<15 (or dialysis) ? ?| ?Stage five ? | ? Stage five ?+ -+ + -+ *Each stage assumes the associated GFR level has been in effect for at least three months. ?Stages 1 to 5, with or without kidney disease, indicate chronic kidney disease. Notes: Determination of stages one and two (with eGFR >59mL/min/1.73 m2) requires estimation of kidney damage for at least three months as defined by structural or functional abnormalities of the kidney, manifested by either:Pathological abnormalities or Markers of kidney damage (including abnormalities in the composition of the blood or urine or abnormalities in imaging tests). [facility] WITH [id number] 21:18:49* Test Item Value Reference Range Interpretation Comme nts WBC (test code = 6690-2) See_Comment [Automated [employer]] The system which generated this result transmitted reference range: 4.30 - 11.10 10*3/?L. The reference range was not used to interpret this result as normal/abnormal. RBC (test code = 789-8) See_Comment [Automated [employer]] The system which generated this result transmitted reference range: 3.93 - 5.25 10*6/?L. The reference range was not used to interpret this result as normal/abnormal. HGB (test code = 718-7) 10.6 g/dL 11.6-15 L HCT (test code = 4544-3) 34.0 % 35.7-45.2 L MCV (test code = 787-2) 73.9 fL 80.6-95.5 L MCH (test code = 785-6) 23.0 pg 25.9-32.8 L MCHC (test code = 786-4) 31.2 g/dL 31.6-35.1 L RDW-SD (test code = 98420-3) 46.5 fL 39-49.9 RDW-CV (test code = 788-0) 17.2 % 12-15.5 H PLT (test code = 777-3) See_Comment H [Automated [employer]] The system which generated this result transmitted reference range: 166 - 358 10*3/?L. The reference range was not used to interpret this result as normal/abnormal. MPV (test code = 67764-7) 9.9 fL 9.5-12.9 NRBC/100 WBC (test code = 9659031728) See_Comment [Automated [employer] ssage] The system which generated this result transmitted reference range: 0.0 - 10.0 /100 WBCs. The reference range was not used to interpret this result as normal/abnormal. NRBC x10^3 (test code = 5456908161) See_Comment [Automated messa ge] The system which generated this result transmitted reference range: 10*3/?L. The reference range was not used to interpret this result as normal/abnormal. GRAN MAT (NEUT) % (test code = 770-8) 52.1 % IMM GRAN % (test code = 6356753952) 0.20 % LYMPH % (test code = 736-9) 39.5 % MONO % (test code = 5905-5) 5.8 % EOS % (test code = 713-8) 1.8 % BASO % (test code = 706-2) 0.6 % GRAN MAT x10^3(ANC) (test code = 4595948441) 3.21 10*3/uL 1.88-7.09 IMM GRAN x10^3 (test code = 1374748249) 0-0.06 LYMPH x10^3 (test code = 731-0) 2.44 10*3/uL 1.32-3.29 MONO x10^3 (test code = 742-7) 0.36 10*3/uL 0.33-0.92 EOS x10^3 (test code = 711-2) 0.11 10*3/uL 0.03-0.39 BASO x10^3 (test code = 704-7) 0.04 10*3/uL 0.01-0.07 Lab Interpretation (test code = 38334-1) Abnormal [facility] THRMPLAS [id number] 21:07:04* Test Item Value Reference Range Interpretation Comme [facility] APTT Patient (test code = 3173-2) See_Comment [Automated message] The system which generated this result transmitted reference range: 23 - 38 Seconds. The reference range was not used to interpret this result as normal/abnormal. LIANA (test code = LIANA) The [facility] patient population mean normal value for aPTT is 30 seconds. Lab Interpretation (test code = 33515-0) Normal [facility] CampusProthrombin Time / [id number] 21:04:22* Test Item Value Reference Range Interpretation Comme [facility] PROTIME PATIENT (test code = 5964-2) See_Comment [Automated messa ge] The system which generated this result transmitted reference range: 12.0 - 14.7 Seconds. The reference range was not used to interpret this result as normal/abnormal. INR (test code = 6301-6) Normal INR <1.1; Warfarin Therapeutic range 2.0 to 3.0 or 2.5 to 3.5, depending upon the indications. Lab Interpretation (test code = 62335-7) Normal [facility]2019NCoV (COVID-19) SARS coronavirus 2 RNA (Presence) in Respiratory specimen by JENNY with probe detection (Other Lab) 2020-02-03 14:52:00* Test Item Value Reference Range Interpretation Comme [facility] 2018NCoV (COVID-19) SARS coronavirus 2 RNA (Presence) in Respiratory specimen by JENNY with probe detection (Other Lab) (test code = 22154-9) Not Detected Not Detected [facility]2019NCoV (COVID-19) SARS coronavirus 2 RNA (Presence) in Respiratory specimen by JENNY with probe detection (Other Lab)2020-01-25 16:11:00 * Test Item Value Reference Range Interpretation Comme [facility] 2018NCoV (COVID-19) SARS coronavirus 2 RNA (Presence) in Respiratory specimen by JENNY with probe detection (Other Lab) (test code = 51456-7) Not Detected Not Detected [facility]"
--- NOTE | 2023-11-26 18:16 | RAD REPORT ---
EXAM DESCRIPTION: CT - Head Brain Wo Cont - 11/26/2023 6:00 pm CLINICAL HISTORY: HEADACHE Headache, drowsiness COMPARISON: No comparisons TECHNIQUE: All CT scans are performed using dose optimization technique as appropriate and may inclu de automated exposure control or mA/KV adjustment according to patient size. FINDINGS: No intracranial hemorrhage, hydrocephalus or extra-axial fluid collection.No areas of brai n edema or evidence of midline shift. The paranasal sinuses and mastoids are clear. The calvarium is intact. IMPRESSION: No acute intracranial abnormality.
[2023-11-26] MEDS ORDERED: dexAMETHasone 10 MG/ML VIAL ONE (19:23)
[2023-11-26] MEDS ORDERED: METOCLOPRAMIDE 10 MG/2mL INJ ONE (19:24)
[2023-11-26] MEDS ORDERED: KETOROLAC 30 MG/ML INJ ONE (19:24)
[2023-11-26] MEDS ORDERED: DIPHENHYDRAMINE 50 MG/ML VIAL ONE (19:24)
--- NOTE | 2023-11-26 21:08 | EDPHYS ---
Physician Documentation [facility] Name: Althea Sumner Age: 23 yrs Sex: Female : 2000 Arrival Date: 11/26/2023 Time: 17:20 Bed 12 Private MD: ED Physician Andre Bee HPI: 11/25 20:24 This 23 yrs old Female presents to ER via Ambulatory with complaints of kb Headache. 20:25 Pt is a 23 year old female who presents with headache to right side of head that kb started 4 days ago. Reports photophobia. Denies nausea, vomiting. States she has had similar headaches, but never lasted this long. . 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 - Infectious Disease History:: Denies. - Social history:: Smoking status: Patient denies any tobacco usage or history of. ROS: 20:24 Constitutional: As per HPI kb Exam: 20:24 Constitutional: This is a well developed, well nourished patient who is awake, alert, kb and in no acute distress. Head/Face: Normocephalic, atraumatic. Eyes: Pupils equal round and reactive to light, extra-ocular motions intact. Lids and lashes normal. Conjunctiva and sclera are non-icteric and not injected. Cornea within normal limits. Periorbital areas with no swelling, redness, or edema. ENT: Moist Mucous membranes Cardiovascular: Regular rate Respiratory: Respirations even and unlabored. No increased work of breathing. Talking in full sentences Abdomen/GI: Soft, non-tender. No distention Skin: Warm, dry with normal turgor. Normal color. MS/ Extremity: Pulses equal, no cyanosis. Neurovascular intact. Full, normal range of motion. Neuro: Awake and alert, GCS 15, oriented to person, place, time, and situation. Moves all extremities. Normal gait. Vital Signs: 17:34 BP 142 / 80; Pulse 90; Resp 17; Temp 97.5; Pulse Ox 96% on R/A; Weight 106.59 kg; cm10 Height 5 ft. 7 in. ; Pain 6/10; 17:34 Body Mass Index 36.81 (106.59 kg, 170.18 cm) cm10 17:34 Pain Scale: Adult cm10 [place] Coma Score: 20:24 Eye Response: spontaneous(4). Motor Response: obeys commands(6). Verbal Response: kb oriented(5). Total: 15. MDM: 17:28 Patient medically screened. kb 20:24 Differential diagnosis: cluster headache, migraine, sinusitis, tension headache. Data kb reviewed: vital signs, nurses notes. Counseling: I had a detailed discussion with the patient and/or guardian regarding the historical points, exam findings, and any diagnostic results supporting the discharge/admit diagnosis, radiology results, the need for outpatient follow up, a family practitioner, to return to the emergency department if symptoms worsen or persist or if there are any questions or concerns that arise at home. 11/25 17:38 Order name: CT Head Brain wo Cont; Complete Time: 18:18 cm10 11/25 18:18 Order name: IV Start; Complete Time: 19:32 kb Administered Medications: 19:32 Drug: Decadron - Dexamethasone IVP 10 mg IVP once Route: IVP; Site: left hand; me1 20:00 Follow up: Response: No adverse reaction; Pain is decreased me1 19:33 Drug: metoCLOPramide IVP 10 mg IVP once; over 1 to 2 minutes Route: IVP; Site: left me1 hand; 20:00 Follow up: Response: No adverse reaction; Pain is decreased me1 19:33 Drug: diphenhydrAMINE IVP 12.5 mg IVP once Route: IVP; Site: left hand; me1 20:00 Follow up: Response: No adverse reaction; Pain is decreased me1 19:33 Drug: Ketorolac IVP 15 mg IVP once Route: IVP; Site: left hand; me1 20:00 Follow up: Response: No adverse reaction; Pain is decreased me1 Disposition Summary: 11/26/23 21:08 Discharge Ordered Notes: Location: Home kb Condition: Stable kb Diagnosis - Headache kb Followup: kb - With: Emergency Department - When: As needed - Reason: Worsening of condition Followup: kb - With: Private Physician - When: 2 - 3 days - Reason: Recheck today's complaints, Continuance of care, Re-evaluation by your physician Discharge Instructions: - Discharge Summary Sheet kb - General Headache Without Cause, [id number] kb Forms: - Medication Reconciliation Form kb - Antibiotic Education kb - Prescription Opioid Use kb - Patient Portal Instructions kb - Leadership Thank You Letter kb Addendum: 11/30/2023 15:48 Co-signature as Attending Physician, Andre Bee MD I agree with the assessment and c major plan of care. Signatures: Dispatcher [employer] EDZaria Mcginnis, MANAGER REPORTING-C MANAGER REPORTING-Andre Abbasi MD MD cha Martinez, Clarissa, RN RN cm10 Ansley Garner RN RN me1
--- NOTE | 2023-11-26 21:08 | ER ---
Nurse's Notes [facility] Name: Althea Sumner Age: 23 yrs Sex: Female : 2000 Arrival Date: 11/26/2023 Time: 17:20 Bed 12 Private MD: Diagnosis: Headache Presentation: 11/25 17:34 Chief complaint: Patient states: Headache onset Saturday. Pt states that the pain is cm10 constant and OTC meds have not helped. Pt reports pressure behind her eyes, dizziness, and light sensitivity. Coronavirus screen: Client denies travel out of the [place] in the last 14 days. At this time, the client does not indicate any symptoms associated with coronavirus-19. Ebola Screen: Patient denies travel to an Ebola-affected area in the 21 days before illness onset. No symptoms or risks identified at this time. Initial Sepsis Screen: Does the patient meet any 2 criteria? No. Patient's initial sepsis screen is negative. Does the patient have a suspected source of infection? No. Patient's initial sepsis screen is negative. Risk Assessment: Do you want to hurt yourself or someone else? Patient reports no desire to harm self or others. Onset of symptoms was November 26, 2023. 17:34 Method Of Arrival: Ambulatory cm10 17:34 Acuity: SHENG 3 cm10 Triage Assessment: 17:36 General: Appears in no apparent distress. comfortable, Behavior is calm, cooperative. cm10 Neuro: No deficits noted. Level of Consciousness is awake, alert, obeys commands, Oriented to person, place, time, situation, Appropriate for age Reports dizziness, headache occipital area, photophobia. Respiratory: No deficits noted. Airway is patent Respiratory effort is even, unlabored, Respiratory pattern is regular, symmetrical. 19:45 Pain: Complains of pain in head. me1 21:23 Pain: Also complains of. me1 21:23 Headache History: The patient has had previous headaches and this one is similar to me1 previous episodes. 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 - Infectious Disease History:: Denies. - Social history:: Smoking status: Patient denies any tobacco usage or history of. Screenin:34 [facility] ED Fall Risk Assessment (Adult) History of falling in the last 3 months, me1 including since admission No falls in past 3 months (0 pts) Confusion or Disorientation No (0 pts) Intoxicated or Sedated No (0 pts) Impaired Gait No (0 pts) Mobility Assist Device Used No (0 pt) Altered Elimination No (0 pt) Score/Fall Risk Level 0 - 2 = Low Risk Maintained a safe environment, Provided non-skid footwear, Hourly rounding (assess needs \T\ fall precautionary measures) done. Abuse screen: Denies threats or abuse. Nutritional screening: No deficits noted. Tuberculosis screening: No symptoms or risk factors identified. Assessment: 19:34 General: Appears uncomfortable, well groomed, well developed, well nourished, Behavior me1 is calm, cooperative, appropriate for age, Reports Headache onset Saturday. Pt states that the pain is constant and OTC meds have not helped. Pt reports pressure behind her eyes, dizziness, and light sensitivity. Pain: Complains of pain in head Pain does not radiate. Pain currently is 6 out of 10 on a pain scale. Quality of pain is described as aching, Pain began 2-3 days ago. Is continuous. Neuro: Level of Consciousness is awake, alert, obeys commands, Oriented to person, place, time, situation, Appropriate for age. Neuro: Reports dizziness, headache in right occipital area. Cardiovascular: Patient's skin is warm and dry. Respiratory: Airway is patent Respiratory effort is even, unlabored, Respiratory pattern is regular, symmetrical. GI: No signs and/or symptoms were reported involving the gastrointestinal system. : No signs and/or symptoms were reported regarding the genitourinary system. EENT: No signs and/or symptoms were reported regarding the EENT system. Derm: Skin is intact, is healthy with good turgor, Skin is pink, warm \T\ dry. Musculoskeletal: No signs and/or symptoms reported regarding the musculoskeletal system. Vital Signs: 17:34 BP 142 / 80; Pulse 90; Resp 17; Temp 97.5; Pulse Ox 96% on R/A; Weight 106.59 kg; cm10 Height 5 ft. 7 in. ; Pain 6/10; 17:34 Body Mass Index 36.81 (106.59 kg, 170.18 cm) cm10 17:34 Pain Scale: Adult cm10 Sullivan Coma Score: 20:24 Eye Response: spontaneous(4). Motor Response: obeys commands(6). Verbal Response: kb oriented(5). Total: 15. ED Course: 17:22 Patient arrived in ED. mr 17:28 [facility] kb 17:28 Andre Bee MD is Attending Physician. kb 17:35 Triage completed. cm10 17:36 Arm band placed on Patient placed in waiting room. cm10 18:02 CT Head Brain wo Cont In Process Unspecified. EDMS 19:10 Ansley Garner, RN is Primary Nurse. me1 19:34 Patient has correct armband on for positive identification. Bed in low position. Call me1 light in reach. Side rails up X 1. Provided Education on: POC. Verbalized understanding.. Client placed on continuous cardiac and pulse oximetry monitoring. NIBP monitoring applied. Pulse ox on. NIBP on. Warm blanket given. 19:34 Inserted saline lock: 24 gauge in left hand, using aseptic technique. me1 19:34 No provider procedures requiring assistance completed. me1 21:23 IV discontinued, intact, bleeding controlled, No redness/swelling at site. Pressure me1 dressing applied. Administered Medications: 19:32 Drug: Decadron - Dexamethasone IVP 10 mg IVP once Route: IVP; Site: left hand; me1 20:00 Follow up: Response: No adverse reaction; Pain is decreased me1 19:33 Drug: metoCLOPramide IVP 10 mg IVP once; over 1 to 2 minutes Route: IVP; Site: left me1 hand; 20:00 Follow up: Response: No adverse reaction; Pain is decreased me1 19:33 Drug: diphenhydrAMINE IVP 12.5 mg IVP once Route: IVP; Site: left hand; me1 20:00 Follow up: Response: No adverse reaction; Pain is decreased me1 19:33 Drug: Ketorolac IVP 15 mg IVP once Route: IVP; Site: left hand; me1 20:00 Follow up: Response: No adverse reaction; Pain is decreased me1 Medication: 19:34 VIS not applicable for this client. me1 Outcome: 21:08 Discharge ordered by . buddy 21:23 Discharged to home ambulatory, me1 21:23 Condition: stable 21:23 Discharge instructions given to patient, Instructed on discharge instructions, follow up and referral plans. Demonstrated understanding of instructions, follow-up care, 21:24 Patient left the ED. me1 Signatures: Dispatcher [employer] EDMS Zaria Krause, NUCLEAR PHYSICS PROFESSOR-C NUCLEAR PHYSICS PROFESSOR-CkFrancie Riley, Reg Reg mr Yoli Johnson, RN RN cm10 Ansley Garner RN RN me1 Corrections: (The following items were deleted from the chart) 19:34 17:34 Chief complaint: Patient states: Headache onset Saturday. Pt states that the pain me1 is constant and OTC meds have not helped. Pt reports pressure behind her eyes, dizziness, and light sensitivity. cm10
[2023-11-26 22:18] VITALS: BP 142/80; TEMP 97.5; O2SAT 96
== END 2023-11-26 21:24 | disposition home or self-care (01) ==
LOC: ER 17:20
DX: R51.9 Headache, unspecified (principal)
CPT/HCPCS: 70450; 96375; 96374; 99284; J2765; J1200; J1100

== ENCOUNTER 2024-03-16 13:53 | Emergency (ER) | payer BC, OTHER ==
--- OUTSIDE RECORDS SUMMARY | 2024-03-16 13:58 | XMS REPORT | Continuity of Care Document ---
Author Name Unknown Address [address] [facility] [place] [address] [facility] Address [address] [facility] [address] [place] [address] Care Team Providers Care Wine Maker Name Role Phone Franki Wen Primary Care Physician [phone] [email or web address] Attending Clinician Unavailable MARCELLUS BAILEY JR Attending Clinician Unavailab BUFFY Barboza Attending Clinician Unavailable Buffy Patiño NP Attending Clinician +[phone] Leo Lomas DPM, Ronald E Attending Clinician + [phone] Doctor Unassigned, Ruso Attending Clinician U Alona lOmedo MD Attending Clinician [phone] ALONA MARTIN Attending Clinician Unavailabl e Pob, Adc Lab Main Attending Clinician Unavailabl e Only, Adc Test Attending Clinician Unavailable NOE Attending Clinician Unavailable John_Martine Attending Clinician Unavailable Luis Jack Attending Clinician +[phone] Cindy Prince Attending Clinician Unavailabl e Mary Mandujano Attending Clinician Unavailabl e Status, Fax Attending Clinician Unavailable Berny Anne Attending Clinician [phone] Manolo Washington Attending Clinician Unavailable Montse Gibbs Attending Clinician Unavailable Luis Mott Attending Clinician [phone] Karla Priest Attending Clinician [phone] Viktor Villanueva Attending Clinician Unavailable Tiffany Fu Attending Clinician Unavailable Adela King Attending Clinician Unavailable Marlin Patiño Attending Clinician Unavailab Fouzia Peters Attending Clinician Unavailable Tyesha Marcos Attending Clinician Unavailable Glo Spring Attending Clinician Unavailabl e Visit, [facility] Nurse Attending Clinician Unava Zaria Mckoy Attending Clinician [phone] Tawnya Davis Attending Clinician + MARCELLUS BAILEY JR Admitting Clinician Unavailab maggie Bailey Jr., Marcellus MARTINEZ Admitting Clinician + [phone] ALONA MARTIN Admitting Clinician Unavailabl e NOE Admitting Clinician Unavailable John_Martine Admitting Clinician Unavailable Luis Mott Unavailable [id number] Payers Payer Name Policy Type Policy Number Effective Date Expirati on Date Source [facility] STAR P [id number] 2018 00:00:00 [place] [facility] STAR [id number] 1993 00:00:00 [facility] [id number] 2023 00:00:00 [facility] (MEDICAID REPLACEMENT - HMO) [id number] [facility] (MEDICAID REPLACEMENT - HMO) [id number] Problems Condition Name Condition Details Condition Category Status Onset Date Resolution Date Last Treatment Date Treating Clinician Comments Source Exposure to COVID-19 coronaviru s Condition Active 2019-03 00:00: 00 2020-01-25 08:44:39 Luis Mott [facility] Obesity Condition Active 2019-03 00:00: 00 2020-01-25 08:44:00 Luis Mott [facility] BMI 32.0-32.9 Condition Active 2019-03 00:00: 00 2020-01-25 08:44:00 Luis Mott [facility] Contracept ion management Condition Active 2019-03 00:00: 00 2020-01-25 08:44:00 Luis Mott [facility] Foot pain, left Condition Active 2019-03 00:00: 00 2020-01-25 08:44:00 Luis Mott [facility] Other general counseling and advice for contracept breanna management Other general counseling and advice for contracept breanna management Disease Active 04-20 00:00: 00 [facility] Irregular menstrual cycle Irregular menstrual cycle Disease Active 2017-03 00:00: 00 [facility] Well woman exam Well woman exam Disease Active 2017-03 00:00: 00 [facility] Obesity (BMI 30-39.9) Obesity (BMI 30-39.9) Disease Active 2017-03 00:00: 00 [facility] Migraine with aura Migraine with aura Disease Active 2017-03 00:00: 00 [facility] Allergies, Adverse Reactions, Alerts Allergy Name Allergy Type Status Severity Reaction(s) Onset Date Inactive Date Treating Clinician Comments Source NO KNOWN ALLERGIE S Drug Class Active [facility] Social History Social Habit Start Date Stop Date Quantity Comments Source History of tobacco use Passive smoker [facility] 2023-02-14 00:00:00 2023-02-14 00:00:00 Current non-drinker of alcohol (finding) [facility] History of Social function 2021-10-26 00:00:00 2021-10-26 00:00:00 [facility] Exposure to SARS-CoV-2 (event) 2021-10-14 00:00:00 2021-10-24 15:05:00 Not sure [facility] time of call 2020-04-28 10:11:46 2020-04-28 10:11:46 04/28/2020 10:12 AM [facility] social history reviewed E&M 2020-02-03 08:23:20 2020-02-03 08:23:20 reviewed - no changes required [facility] smoking, advice to quit 2020-02-03 08:23:20 2020-02-03 08:23:20 Yes [facility] Weight Management Counseling Provided 2020-02-03 08:23:20 2020-02-03 08:23:20 Follow Up Done [facility] if the patient is using/has used a vaping item, Current, Former, Never Used, Not asked 2020-01-25 08:43:08 2020-01-25 08:43:08 No [facility] social history E&M 2020-01-18 09:03:26 2020-01-18 09:03:26 Joshua lives with her professional care givers. She lives at children's home in [place]. Her parents are Single. [facility] living situation (place) description 2020-01-18 09:03:26 2020-01-18 09:03:26 children's home [facility] sexual orientation 2020-01-18 09:03:26 2020-01-18 09:03:26 Bisexual [facility] is there any chance that you could be ? 2020-01-18 09:03:26 2020-01-18 09:03:26 No [facility] Tobacco use and exposure 2019-04-20 00:00:00 2019-04-20 00:00:00 Smokeless tobacco non-user [facility] Tobacco Comment 2012-07-14 00:00:00 2012-07-14 00:00:00 smoke exposure-outside [facility] Sex Assigned At 2001 00:00:00 2000 00:00:00 [facility] Smoking Status Start Date Stop Date Source Never smoked tobacco [facility] Medications Ordered Medication Name Filled Medication Name [...]
D uration of Therapy: Other (see Comments) [facility] pantoprazol e (PROTONIX) injection 40 mg 2022-03 23:15: 00 02-15 00:28 :00 No 40mg 40 mg, Slow IV Push, ONCE, 1 dose, On Teresa 02/14/23 at 1715 [facility] proMETHazin e (PHENERGAN) 12.5 mg in NS 50 mL IV piggyback (CNR) 2022-03 22:30: 00 02-15 00:47 :00 No 12.5mg 12.5 mg, IV Piggyback, at 200 mL/hr Administer over 15 Minutes, ONCE, 1 dose, On Teresa 02/14/23 at 1630, DONITA [facility] proMETHazin e 25 mg tablet 2022-03 00:00: 00 Yes [id number] 25mg Take 1 tablet by mouth every 6 (six) hours as needed for Nausea and Vomiting (N/V). [facility] cephALEXin 500 mg capsule 2022-03 00:00: 00 02-20 05:59 :00 No [id number] 500mg Take 1 capsule by mouth 4 (four) times daily for 5 days. [facility] lactated ringers IV infusion 1,000 mL 10-26 14:00: 00 Yes 1000mL at 100 mL/hr, 1,000 mL, IV Infusion, CONTINUOUS , Starting on Teresa 10/26/21 at 0900, Until Discontinu ed, Routine, PACU [facility] HYDROmorphO ne (DILAUDID) injection 0.2 mg 10-26 13:50: 24 Yes .2mg 0.2 mg, Slow IV Push, Q5MIN PRN, 10 doses, Starting on Teresa 10/26/21 at 0850, Until Discontinu ed, Routine, Pain (scale 7-10), PACU
Us e approved by (Faculty): PACU USE -ANESTHESI A SERVICE-HY DROMORPHON E INJECTIONS [facility] FENTanyl PF (SUBLIMAZE (PF)) injection 25 mcg 10-26 13:50: 24 Yes 25ug 25 mcg, Slow IV Push, Q5MIN PRN, 4 doses, Starting on Teresa 10/26/21 at 0850, Until Discontinu ed, Routine, Pain (scale 4-6), PACU [facility] ondansetron (ZOFRAN (PF)) injection 4 mg 10-26 13:50: 24 Yes 4mg 4 mg, Slow IV Push, PRN, 1 dose, Starting on Teresa 10/26/21 at 0850, Until Discontinu ed, Routine, Nausea and Vomiting (N/V), PACU [facility] bupivacaine liposome (PF) (EXPAREL (PF)) 1.3 % (13.3 mg/mL) injection 10-26 13:28: 00 10-26 13:42 :04 No PRN, Starting on Teresa 10/26/21 at 0828, Until Teresa 10/26/21 at 0842, Routine, Intra-op [facility] sodium chloride 0.9 % irrigation solution 10-26 13:01: 00 10-26 13:42 :04 No PRN, Starting on Teresa 10/26/21 at 0801, Until Teresa 10/26/21 at 0842, Intra-op [facility] bupivacaine (preserv free) 0.5% (SENSORCAIN E MPF) 0.5 % (5 mg/mL) injection 10-26 12:43: 00 10-26 13:42 :04 No PRN, Starting on Teresa 10/26/21 at 0743, Until Teresa 10/26/21 at 0842, Routine, Intra-op [facility] lactated ringers IV infusion 1,000 mL 10-26 11:30: 00 10-26 11:55 :00 No 1000mL at 42 mL/hr, 1,000 mL, IV Infusion, ONCE, 1 dose, On Teresa 10/26/21 at 0630, Routine, DSU Pre-op [facility] IRON, FERROUS SULFATE, ORAL 10-26 09:27: 20 Yes [id number] Take by mouth. [facility] aspirin 325 mg tablet 10-26 00:00: 00 11-24 04:59 :00 No [id number] 4103 325mg Take 1 tablet by mouth in the morning and 1 tablet in the evening. Take with meals. Do all this for 28 days. [facility] IRON, FERROUS SULFATE, ORAL 10-19 15:27: 36 Yes [id number] Take by mouth. [facility] norethindro ne 0.35 mg tablet 2017-03 00:00: 00 Yes [id number] 1{tbl} Take 1 tablet by mouth daily. [facility] loratadine (CLARITIN) 10 mg tablet 2012-03 00:00: 00 Yes 10mg Take 1 Tab by mouth daily. [facility] cetirizine 10 mg tablet Take 1 tablet every day by oral route. cetirizine 10 mg tablet Take 1 tablet every day by oral route. No 1 Q1D cetirizine 10 mg tablet Take 1 tablet every day by oral route. [facility] ciprofloxac in 500 mg tablet Take 1 tablet every 12 hours by oral route for 7 days. ciprofloxac in 500 mg tablet Take 1 tablet every 12 hours by oral route for 7 days. No 1 Q12H ciprofloxa sofi 500 mg tablet Take 1 tablet every 12 hours by oral route for 7 days. [facility] fluticasone propionate 50 mcg/actuati on nasal spray,suspe nsion Zalma 1 spray every day by intranasal route. fluticasone propionate 50 mcg/actuati on nasal spray,suspe nsion Zalma 1 spray every day by intranasal route. No 1spray( s) Q1D fluticason e propionate 50 mcg/actuat ion nasal spray,susp ension Zalma 1 spray every day by intranasal route. [facility] Immunizations Ordered Immunization Name Filled Immunization Name Date Status Comments Source Influenza Virus Vaccine Quad .5 mL IM 6+ MO 2019-04-20 00:00:00 Completed [facility] Influenza Virus Vaccine Quad .5 mL IM 6+ MO 2019-04-20 00:00:00 Completed [facility] Influenza Virus Vaccine Quad .5 mL IM 6+ MO 2019-04-20 00:00:00 Completed [facility] Influenza Virus Vaccine Quad .5 mL IM 6+ MO 2019-04-20 00:00:00 Completed [facility] Influenza Virus Vaccine Quad .5 mL IM 6+ MO 2019-04-20 00:00:00 Completed [facility] influenza, unspecified formulation 2019-04-20 00:00:00 Completed [facility] meningococcal B, unspecified 2018-12-01 00:00:00 Completed [facility] meningococcal B, unspecified 2018 00:00:00 Completed [facility] meningococcal ACWY, unspecified formulation 2018-04-07 00:00:00 Completed [facility] influenza, unspecified formulation 2016-03-15 00:00:00 Completed [facility] HPV, unspecified formulation 2016-03-15 00:00:00 Completed [facility] HPV 2014-11-03 00:00:00 Completed [facility] HPV 2014-11-03 00:00:00 Completed [facility] HPV 2014-11-03 00:00:00 Completed [facility] HPV 2014-11-03 00:00:00 Completed [facility] HPV 2014-11-03 00:00:00 Completed [facility] HPV, unspecified formulation 2014-11-03 00:00:00 Completed [facility] Influenza Virus Vaccine Nasal 2012-12-24 00:00:00 Completed [facility] TDAP 2012-12-24 00:00:00 Completed [facility] Meningococcal Polysaccharide (groups A, C, Y and W-135) conjugate vaccine (MCV4P) 2012-12-24 00:00:00 Completed [facility] HPV 2012-12-24 00:00:00 Completed [facility] Influenza Virus Vaccine Nasal 2012-12-24 00:00:00 Completed [facility] TDAP 2012-12-24 00:00:00 Completed [facility] Meningococcal Polysaccharide (groups A, C, Y and W-135) conjugate vaccine (MCV4P) 2012-12-24 00:00:00 Completed [facility] HPV 2012-12-24 00:00:00 Completed [facility] Influenza Virus Vaccine Nasal 2012-12-24 00:00:00 Completed [facility] TDAP 2012-12-24 00:00:00 Completed [facility] Meningococcal Polysaccharide (groups A, C, Y and W-135) conjugate vaccine (MCV4P) 2012-12-24 00:00:00 Completed [facility] HPV 2012-12-24 00:00:00 Completed [facility] Influenza Virus Vaccine Nasal 2012-12-24 00:00:00 Completed [facility] TDAP 2012-12-24 00:00:00 Completed [facility] Meningococcal Polysaccharide (groups A, C, Y and W-135) conjugate vaccine (MCV4P) 2012-12-24 00:00:00 Completed [facility] HPV 2012-12-24 00:00:00 Completed [facility] Influenza Virus Vaccine Nasal 2012-12-24 00:00:00 Completed [facility] TDAP 2012-12-24 00:00:00 Completed [facility] Meningococcal Polysaccharide (groups A, C, Y and W-135) conjugate vaccine (MCV4P) 2012-12-24 00:00:00 Completed [facility] HPV 2012-12-24 00:00:00 Completed [facility] Tdap 2012-12-24 00:00:00 Completed [facility] meningococcal ACWY, unspecified formulation 2012-12-24 00:00:00 Completed [facility] influenza, unspecified formulation 2012-12-24 00:00:00 Completed [facility] HPV, unspecified formulation 2012-12-24 00:00:00 Completed [facility] influenza, unspecified formulation 2011-12-20 00:00:00 Completed [facility] influenza, unspecified formulation 2010-12-14 00:00:00 Completed [facility] influenza, unspecified formulation 2009-02-24 00:00:00 Completed [facility] Varicella (varivax)(chicken pox) 2007-04-15 00:00:00 Completed [facility] varicella 2007-04-15 00:00:00 Completed [facility] Influenza Virus Vaccine - Whole 2007-01-28 00:00:00 Completed [facility] influenza, unspecified formulation 2007-01-28 00:00:00 Completed [facility] MMR 2005-10-31 00:00:00 Completed [facility] Polio (IPV/OPV) 2005-10-31 00:00:00 Completed [facility] DTAP 2005-10-31 00:00:00 Completed [facility] polio, unspecified formulation 2005-10-31 00:00:00 Completed [facility] 03 2005-10-31 00:00:00 Completed [facility] DTaP, unspecified formulation 2005-10-31 00:00:00 Completed [facility] HEPATITIS A 2005-06-19 00:00:00 Completed [facility] Hep A, unspecified formulation 2005-06-19 00:00:00 Completed [facility] HEPATITIS A 2004-12-01 00:00:00 Completed [facility] Hep A, unspecified formulation 2004-12-01 00:00:00 Completed [facility] DTAP 2003-02-22 00:00:00 Completed [facility] HIB 4 Dose Schedule 2003-02-22 00:00:00 Completed [facility] Pneumococcal 7 Conjugate, PCV7 (Prevnar7) 2003-02-22 00:00:00 Completed [facility] DTAP 2003-02-22 00:00:00 Completed [facility] HIB 4 Dose Schedule 2003-02-22 00:00:00 Completed [facility] Pneumococcal 7 Conjugate, PCV7 (Prevnar7) 2003-02-22 00:00:00 Completed [facility] DTAP 2003-02-22 00:00:00 Completed [facility] HIB 4 Dose Schedule 2003-02-22 00:00:00 Completed [facility] Pneumococcal 7 Conjugate, PCV7 (Prevnar7) 2003-02-22 00:00:00 Completed [facility] DTAP 2003-02-22 00:00:00 Completed [facility] HIB 4 Dose Schedule 2003-02-22 00:00:00 Completed [facility] Pneumococcal 7 Conjugate, PCV7 (Prevnar7) 2003-02-22 00:00:00 Completed [facility] DTAP 2003-02-22 00:00:00 Completed [facility] HIB 4 Dose Schedule 2003-02-22 00:00:00 Completed [facility] Pneumococcal 7 Conjugate, PCV7 (Prevnar7) 2003-02-22 00:00:00 Completed [facility] pneumococcal, unspecified formulation 2003-02-22 00:00:00 Completed [facility] Hib, unspecified formulation 2003-02-22 00:00:00 Completed [facility] DTaP, unspecified formulation 2003-02-22 00:00:00 Completed [facility] DTAP 2002-11-18 00:00:00 Completed [facility] HIB 4 Dose Schedule 2002-11-18 00:00:00 Completed [facility] Hep B, Adol or Pedi Dosage 2002-11-18 00:00:00 Completed [facility] MMR 2002-11-18 00:00:00 Completed [facility] Polio (IPV/OPV) 2002-11-18 00:00:00 Completed [facility] Varicella (varivax)(chicken pox) 2002-11-18 00:00:00 Completed [facility] DTAP 2002-11-18 00:00:00 Completed [facility] HIB 4 Dose Schedule 2002-11-18 00:00:00 Completed [facility] Hep B, Adol or Pedi Dosage 2002-11-18 00:00:00 Completed [facility] MMR 2002-11-18 00:00:00 Completed [facility] Polio (IPV/OPV) 2002-11-18 00:00:00 Completed [facility] Varicella (varivax)(chicken pox) 2002-11-18 00:00:00 Completed [facility] DTAP 2002-11-18 00:00:00 Completed [facility] HIB 4 Dose Schedule 2002-11-18 00:00:00 Completed [facility] Hep B, Adol or Pedi Dosage 2002-11-18 00:00:00 Completed [facility] MMR 2002-11-18 00:00:00 Completed [facility] Polio (IPV/OPV) 2002-11-18 00:00:00 Completed [facility] Varicella (varivax)(chicken pox) 2002-11-18 00:00:00 Completed [facility] DTAP 2002-11-18 00:00:00 Completed [facility] HIB 4 Dose Schedule 2002-11-18 00:00:00 Completed [facility] Hep B, Adol or Pedi Dosage 2002-11-18 00:00:00 Completed [facility] MMR 2002-11-18 00:00:00 Completed [facility] Polio (IPV/OPV) 2002-11-18 00:00:00 Completed [facility] Varicella (varivax)(chicken pox) 2002-11-18 00:00:00 Completed [facility] DTAP 2002-11-18 00:00:00 Completed [facility] HIB 4 Dose Schedule 2002-11-18 00:00:00 Completed [facility] Hep B, Adol or Pedi Dosage 2002-11-18 00:00:00 Completed [facility] MMR 2002-11-18 00:00:00 Completed [facility] Polio (IPV/OPV) 2002-11-18 00:00:00 Completed [facility] Varicella (varivax)(chicken pox) 2002-11-18 00:00:00 Completed [facility] varicella 2002-11-18 00:00:00 Completed [facility] polio, unspecified formulation 2002-11-18 00:00:00 Completed [facility] 03 2002-11-18 00:00:00 Completed [facility] Hib, unspecified formulation 2002-11-18 00:00:00 Completed [facility] Hep B, unspecified formulation 2002-11-18 00:00:00 Completed [facility] DTaP, unspecified formulation 2002-11-18 00:00:00 Completed [facility] DTAP 2002-04-10 00:00:00 Completed [facility] HIB 4 Dose Schedule 2002-04-10 00:00:00 Completed [facility] Polio (IPV/OPV) 2002-04-10 00:00:00 Completed [facility] DTAP 2002-04-10 00:00:00 Completed [facility] HIB 4 Dose Schedule 2002-04-10 00:00:00 Completed [facility] Polio (IPV/OPV) 2002-04-10 00:00:00 Completed [facility] DTAP 2002-04-10 00:00:00 Completed [facility] HIB 4 Dose Schedule 2002-04-10 00:00:00 Completed [facility] Polio (IPV/OPV) 2002-04-10 00:00:00 Completed [facility] DTAP 2002-04-10 00:00:00 Completed [facility] HIB 4 Dose Schedule 2002-04-10 00:00:00 Completed [facility] Polio (IPV/OPV) 2002-04-10 00:00:00 Completed [facility] DTAP 2002-04-10 00:00:00 Completed [facility] HIB 4 Dose Schedule 2002-04-10 00:00:00 Completed [facility] Polio (IPV/OPV) 2002-04-10 00:00:00 Completed [facility] polio, unspecified formulation 2002-04-10 00:00:00 Completed [facility] Hib, unspecified formulation 2002-04-10 00:00:00 Completed [facility] DTaP, unspecified formulation 2002-04-10 00:00:00 Completed [facility] DTAP 2001 00:00:00 Completed [facility] HIB 4 Dose Schedule 2001 00:00:00 Completed [facility] Hep B, Adol or Pedi Dosage 2001 00:00:00 Completed [facility] Polio (IPV/OPV) 2001 00:00:00 Completed [facility] Pneumococcal 7 Conjugate, PCV7 (Prevnar7) 2001 00:00:00 Completed [facility] DTAP 2001 00:00:00 Completed [facility] HIB 4 Dose Schedule 2001 00:00:00 Completed [facility] Hep B, Adol or Pedi Dosage 2001 00:00:00 Completed [facility] Polio (IPV/OPV) 2001 00:00:00 Completed [facility] Pneumococcal 7 Conjugate, PCV7 (Prevnar7) 2001 00:00:00 Completed [facility] DTAP 2001 00:00:00 Completed [facility] HIB 4 Dose Schedule 2001 00:00:00 Completed [facility] Hep B, Adol or Pedi Dosage 2001 00:00:00 Completed [facility] Polio (IPV/OPV) 2001 00:00:00 Completed [facility] Pneumococcal 7 Conjugate, PCV7 (Prevnar7) 2001 00:00:00 Completed [facility] DTAP 2001 00:00:00 Completed [facility] HIB 4 Dose Schedule 2001 00:00:00 Completed [facility] Hep B, Adol or Pedi Dosage 2001 00:00:00 Completed [facility] Polio (IPV/OPV) 2001 00:00:00 Completed [facility] Pneumococcal 7 Conjugate, PCV7 (Prevnar7) 2001 00:00:00 Completed [facility] DTAP 2001 00:00:00 Completed [facility] HIB 4 Dose Schedule 2001 00:00:00 Completed [facility] Hep B, Adol or Pedi Dosage 2001 00:00:00 Completed [facility] Polio (IPV/OPV) 2001 00:00:00 Completed [facility] Pneumococcal 7 Conjugate, PCV7 (Prevnar7) 2001 00:00:00 Completed [facility] polio, unspecified formulation 2001 00:00:00 Completed [facility] pneumococcal, unspecified formulation 2001 00:00:00 Completed [facility] Hib, unspecified formulation 2001 00:00:00 Completed [facility] Hep B, unspecified formulation 2001 00:00:00 Completed [facility] DTaP, unspecified formulation 2001 00:00:00 Completed [facility] Hep B, Adol or Pedi Dosage 2001 00:00:00 Completed [facility] Hep B, Adol or Pedi Dosage 2001 00:00:00 Completed [facility] Hep B, Adol or Pedi Dosage 2001 00:00:00 Completed [facility] Hep B, Adol or Pedi Dosage 2001 00:00:00 Completed [facility] Hep B, Adol or Pedi Dosage 2001 00:00:00 Completed [facility] Hep B, unspecified formulation 2001 00:00:00 Completed [facility] Influenza Virus Vaccine Nasal Unknown Completed [facility] TDAP Unknown Completed [facility] Meningococcal Polysaccharide (groups A, C, Y and W-135) conjugate vaccine (MCV4P) Unknown Completed [facility] HPV Unknown Completed [facility] DTAP Unknown Completed [facility] HIB 4 Dose Schedule Unknown Completed [facility] Hep B, Adol or Pedi Dosage Unknown Completed [facility] MMR Unknown Completed [facility] Polio (IPV/OPV) Unknown Completed [facility] Varicella (varivax)(chicken pox) Unknown Completed [facility] Pneumococcal 7 Conjugate, PCV7 (Prevnar7) Unknown Completed [facility] Influenza Virus Vaccine Quad .5 mL IM 6+ MO (FLUZONE/FLULAVAL/FL UARIX) Unknown Completed [facility] Vital Signs Vital Name Observation Time Observation Value Comments S ource Systolic blood pressure 2023-02-15 02:00:00 115 mm[Hg] [facility] Diastolic blood pressure 2023-02-15 02:00:00 67 mm[Hg] [facility] Heart rate 2023-02-15 02:00:00 79 /min [facility] Body temperature 2023-02-15 02:00:00 36.44 María [facility] Oxygen saturation in Arterial blood by Pulse oximetry 2023-02-15 02:00:00 100 /min [facility] Respiratory rate 2023-02-15 00:15:00 16 /min [facility] Body height 2023-02-14 22:00:00 170.2 cm [facility] Body weight 2023-02-14 22:00:00 100.426 kg [facility] BMI 2023-02-14 22:00:00 34.68 kg/m2 [facility] Heart rate 2021-10-26 14:16:00 83 /min [facility] Respiratory rate 2021-10-26 14:16:00 11 /min [facility] Oxygen saturation in Arterial blood by Pulse oximetry 2021-10-26 14:16:00 98 /min [facility] Systolic blood pressure 2021-10-26 14:13:00 139 mm[Hg] [facility] Diastolic blood pressure 2021-10-26 14:13:00 72 mm[Hg] [facility] Body temperature 2021-10-26 13:42:00 36.83 María [facility] Body height 2021-10-23 13:24:00 168.9 cm [facility] Body weight 2021-10-23 13:24:00 95.3 kg [facility] BMI 2021-10-23 13:24:00 33.41 kg/m2 [facility] Systolic blood pressure 2021-10-26 11:54:00 139 mm[Hg] [facility] Diastolic blood pressure 2021-10-26 11:54:00 77 mm[Hg] [facility] Heart rate 2021-10-26 11:54:00 92 /min [facility] Body temperature 2021-10-26 11:54:00 37.33 María [facility] Respiratory rate 2021-10-26 11:54:00 20 /min [facility] Oxygen saturation in Arterial blood by Pulse oximetry 2021-10-26 11:54:00 98 /min [facility] Body height 2021-10-23 13:24:00 168.9 cm [facility] Body weight 2021-10-23 13:24:00 95.3 kg [facility] BMI 2021-10-23 13:24:00 33.41 kg/m2 [facility] Height 2020-12-03 00:00:00 5.7 [in_i] [facility] BMI (Body Mass Index) 2020-12-03 00:00:00 4517.1 kg/m2 [facility] BP Systolic 2020-12-03 00:00:00 136 mm[Hg] [facility] Body Weight 2020-12-03 00:00:00 3340.8 [oz_av] [facility] BP Diastolic 2020-12-03 00:00:00 87 mm[Hg] [facility] temperature site 2020-02-03 08:23:20 temporal [facility] temperature E&M 2020-02-03 08:23:20 97.7 [degF] [facility] temperature E&M 2020-01-25 08:43:08 97.5 [degF] [facility] height percentile 2020-01-18 09:03:26 58 [facility] height E&M 2020-01-18 09:03:26 64.76 [in_i] [facility] weight percentile 2020-01-18 09:03:26 97 [facility] weight in kilograms E&M 2020-01-18 09:03:26 86.6 kg [facility] weight E&M 2020-01-18 09:03:26 190.52 [lb_av] [facility] blood pressure, diastolic 2020-01-18 09:03:26 70 mm[Hg] [facility] blood pressure, systolic 2020-01-18 09:03:26 107 mm[Hg] [facility] temperature site 2020-01-18 09:03:26 oral [facility] respiratory rate E&M 2020-01-18 09:03:26 20 /min [facility] pulse rate 2020-01-18 09:03:26 117 /min [facility] oxygen saturation, oximetry 2020-01-18 09:03:26 98 /min [facility] Procedures Procedure Date / Time Performed Performing Clinician Source URINALYSIS 2023-02-15 00:37:00 Buffy Patiño [facility] POCT TEST 2023-02-15 00:36:00 Buffy Patiño [facility] LIPASE 2023-02-14 22:54:00 Buffy Patiño [facility] COMP. METABOLIC PANEL ([id number]) 2023-02-14 22:54:00 Buffy Patiño [facility] CBC WITH DIFF 2023-02-14 22:54:00 Buffy Patiño [facility] ASSIGNMENT OF BENEFITS 2023-02-14 22:25:53 Docto r Unassigned, Ruso [facility] CONSENT/REFUSAL FOR DIAGNOSIS AND TREATMENT 2023-02-14 21:40:00 Doctor Unassigned, Ruso [facility] FL TIME OR (NON-REPORTABLE) 2021-10-26 13:35:00 Marcellus Bailey [facility] FL TIME OR (NON-REPORTABLE) 2021-10-26 13:35:00 Marcellus Bailey [facility] METATARSAL OSTEOTOMY 2021-10-26 12:18:00 Marcellus Bailey [facility] URINALYSIS 2021-10-26 11:43:[address] [facility] URINALYSIS 2021-10-26 11:43:[address] [facility] POCT TEST 2021-10-26 11:30:00 Michael Ayala [facility] POCT TEST 2021-10-26 11:30:00 Michael Ayala [facility] PATIENT QUESTIONNAIRE 2021-10-26 05:01:00 Doctor Unassigned, Ruso [facility] EKG (SCANNED DOCUMENTS) 2021-10-25 05:01:00 Doct or Unassigned, Ruso [facility] CBC WITH DIFF 2021-10-24 20:38:00 Marcellus Bailey [facility] PROTHROMBIN TIME / INR 2021-10-24 20:38:00 Michelle Bailey [facility] ACTIVATED PARTIAL THRMPLAS CHIRAG 2021-10-24 20:38:00 Marcellus Bailey [facility] COVID-19 (ID NOW RAPID TESTING) 2021-10-24 20:38:00 Marcellus Bailey [facility] COMP. METABOLIC PANEL ([id number]) 2021-10-24 20:38:00 Marcellus Bailey [facility] LAB ONLY COVID INTERPRETATION 2021-10-24 20:38:00 Marcellus Bailey [facility] CONSENT/REFUSAL FOR DIAGNOSIS AND TREATMENT 2021-10-24 20:04:22 Doctor Unassigned, Ruso [facility] CONSENT/REFUSAL FOR DIAGNOSIS AND TREATMENT 2021-10-24 20:04:22 Doctor Unassigned, Ruso [facility] ASSIGNMENT OF BENEFITS 2021-10-24 20:02:23 Docto r Unassigned, Ruso [facility] ASSIGNMENT OF BENEFITS 2021-10-24 20:02:23 Docto r Unassigned, Ruso [facility] NOTICE OF PRIVACY PRACTICES 2021-10-24 20:01:58 Doctor Unassigned, Ruso [facility] NOTICE OF PRIVACY PRACTICES 2021-10-24 20:01:58 Doctor Unassigned, Ruso [facility] CONSENT/REFUSAL FOR DIAGNOSIS AND TREATMENT 2021-10-24 20:01:32 Doctor Unassigned, Ruso [facility] CONSENT/REFUSAL FOR DIAGNOSIS AND TREATMENT 2021-10-24 20:01:32 Doctor Unassigned, Ruso [facility] ASSIGNMENT OF BENEFITS 2021-10-24 20:01:09 Docto r Unassigned, Ruso [facility] ASSIGNMENT OF BENEFITS 2021-10-24 20:01:09 Docto r Unassigned, Ruso [facility] EXTERNAL PROVIDER RECORDS 2021-10-19 05:01:00 Do ctor Unassigned, Ruso [facility] EXTERNAL PROVIDER RECORDS 2021-10-19 05:01:00 Do ctor Unassigned, Ruso [facility] Urinalysis - - In House 2020-01-18 09:16:36 Luis Mott [facility] Planned Activity Planned Date Details Comments Source Diagnostic Test Pending 2020-12-03 00:00:00 rapid influenza virus A + B and SARS CoV + SARS CoV 2 Ag panel, [place], upper respiratory specimen [code = rapid influenza virus A + B and SARS CoV + SARS CoV 2 Ag panel, [place], upper respiratory specimen] [facility] Instructions [facility] Group Encounters Start Date/Time End Date/Time Encounter Type Admission Type Attending Clinicians Care Facility Care Department Encounter ID Source 2022-02-26 20:41:13 Outpatient quoc [facility] [id number] [facility] 2022-02-09 20:11:07 Outpatient quoc [facility] [id number] [facility] 2021-10-20 09:34:57 Outpatient MARCELLUS CURIEL JR [facility] SOR [id number] [facility] 2023-02-14 16:04:00 2023-02-14 20:28:00 Emergency X BUFFY PATIÑO [facility] ERT [id number] [facility] 2023-02-14 16:04:00 2023-02-14 20:28:00 Emergency Buffy Patiño [facility] 1.2.840.114 350.1.13.10 4.2.7.2.686 [id number] [facility] 2021-10-26 06:27:00 2021-10-26 09:26:00 Outpatient MARCELLUS CURIEL JR [facility] SOR [id number] [facility] 2021-10-26 06:27:00 2021-10-26 09:26:00 Hospital Encounter Marcellus Bailey [facility] 1.2.840.114 350.1.13.10 4.2.7.2.686 [id number] [facility] 2021-10-26 07:15:00 2021-10-26 08:41:00 Surgery Marcellus Bailey [facility] 1.2.840.114 350.1.13.10 4.2.7.2.686 [id number] [facility] 2021-10-26 00:00:00 2021-10-26 00:00:00 Orders Only Doctor Unassigned, Ruso [facility] 1.2.840.114 350.1.13.10 4.2.7.2.686 [id number] [facility] 2021-10-25 17:53:00 2021-10-25 23:59:00 Hospital Encounter Alona Martin BUILDING 1.2.840.114 350.1.13.10 4.2.7.2.686 [id number] [facility] 2021-10-25 00:00:00 2021-10-25 23:59:00 Outpatient Jessica ALONA MARTIN [facility] ACO [id number] [facility] 2021-10-24 15:07:05 2021-10-24 23:59:00 Hospital Encounter Marcellus Bailey [facility] 1.2.840.114 350.1.13.10 4.2.7.2.686 [id number] [facility] 2021-10-24 16:00:00 2021-10-24 16:15:00 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 Visit Pob, Adc Lab Main Marcellus Bailey [facility] 1.2.840.114 350.1.13.10 4.2.7.2.686 [id number] [facility] 2021-10-24 15:45:00 2021-10-24 16:00:00 Laboratory Only Only, Adc Test Marcellus Bailey [facility] 1.2.840.114 350.1.13.10 4.2.7.2.686 [id number] [facility] 2021-10-24 15:07:05 2021-10-24 15:07:05 Outpatient MARCELLUS CURIEL JR [facility] [id number] [facility] 2021-10-24 15:08:27 2021-10-24 15:06:00 Outpatient MARCELLUS CURIEL JR [facility] [id number] [facility] 2021-09-26 04:13:00 2021-09-26 04:13:00 Outpatient DANGREKHA CASEY [facility] [id number] Juan Luis varma [facility] 2020-12-03 00:00:00 2020-12-03 00:00:00 Cherelle Lopez, POLYSOMNOGRAPHY TECH-C: [address], [place] [address] , Ph. [facility] [id number] 2020-05-27 00:00:00 2020-05-27 00:00:00 Letter (Out) Luis Mott [facility] 1..840.114 350.1.13.10 4.2.7.2.686 [id number] [facility] 2020-04-28 00:00:00 2020-04-28 00:00:00 Office Visit Cindy Prince Vianey [facility] Encounter/ [id number] [facility] 2020-04-25 00:00:00 2020-04-25 00:00:00 Orders Only Doctor Unassigned, Ruso [facility] 1..840.114 350.1.13.10 4.2.7.2.686 [id number] [facility] 2020-04-25 00:00:00 2020-04-25 00:00:00 Office Visit Status, Fax [facility] Encounter/ [id number] [facility] 2020-04-25 00:00:00 2020-04-25 00:00:00 Office Visit Status, Fax [facility] Encounter/ [id number] [facility] 2020-04-25 00:00:00 2020-04-25 00:00:00 Office Visit Status, Fax [facility] Encounter/ [id number] [facility] 2020-02-29 00:00:00 2020-02-29 00:00:00 Office Visit Berny Anne [facility] Encounter/ [id number] [facility] 2020-02-25 00:00:00 2020-02-25 00:00:00 Office Visit Status, Fax [facility] Encounter/ [id number] [facility] 2020-02-25 00:00:00 2020-02-25 00:00:00 Office Visit Status, Fax [facility] Encounter/ [id number] [facility] 2020-02-25 00:00:00 2020-02-25 00:00:00 Office Visit Status, Fax [facility] Encounter/ [id number] [facility] 2020-02-08 00:00:00 2020-02-08 00:00:00 Office Visit Berny Anne [facility] Encounter/ [id number] [facility] 2020-02-03 00:00:00 2020-02-03 00:00:00 Office Visit Berny Anne [facility] Encounter/ [id number] [facility] 2020-02-03 00:00:00 2020-02-03 00:00:00 Office Visit Berny Anne Elia Franklin, Ciara [facility] Encounter/ [id number] [facility] 2020-02-03 00:00:00 2020-02-03 00:00:00 Office Visit Luis Mott [facility] Encounter/ [id number] [facility] 2020-02-01 00:00:00 2020-02-01 00:00:00 Office Visit Berny Anne [facility] Encounter/ [id number] [facility] 2020-01-27 00:00:00 2020-01-27 00:00:00 Office Visit Karla Priest [facility] Encounter/ [id number] [facility] 2020-01-26 00:00:00 2020-01-26 00:00:00 Office Visit Luis Mott [facility] Encounter/ [id number] [facility] 2020-01-25 00:00:00 2020-01-25 00:00:00 Office Visit Luis Mott [facility] Encounter/ [id number] [facility] 2020-01-25 00:00:00 2020-01-25 00:00:00 Office Visit Luis Mott Rachel [facility] Encounter/ [id number] [facility] 2020-01-25 00:00:00 2020-01-25 00:00:00 Office Visit Luis Mott [facility] Encounter/ [id number] [facility] 2020-01-22 00:00:00 2020-01-22 00:00:00 Office Visit Luis Mott Angel [facility] Encounter/ [id number] [facility] 2020-01-20 00:00:00 2020-01-20 00:00:00 Office Visit Luis Mott [facility] Encounter/ [id number] [facility] 2020-01-20 00:00:00 2020-01-20 00:00:00 Office Visit Luis Mott [facility] Encounter/ [id number] [facility] 2020-01-19 00:00:00 2020-01-19 00:00:00 Office Visit Luis Mott [facility] Encounter/ [id number] [facility] 2020-01-18 00:00:00 2020-01-18 00:00:00 Office Visit Luis Mott [facility] Encounter/ [id number] [facility] 2020-01-18 00:00:00 2020-01-18 00:00:00 Office Visit Luis Mott [facility] Encounter/ [id number] [facility] 2020-01-18 00:00:00 2020-01-18 00:00:00 Office Visit Luis Mott [facility] Encounter/ [id number] [facility] 2020-01-18 00:00:00 2020-01-18 00:00:00 Office Visit Luis Mott, Adela Phillip [facility] Encounter/ [id number] [facility] 00:00:00 2020-01-18 00:00:00 Office Visit Luis Mott [facility] Encounter/ [id number] [facility] 2020-01-12 00:00:00 2020-01-12 00:00:00 Office Visit Marlin Patiño, Fouzia Prince, Cindy Marcos, Tyesha [facility] Encounter/ [id number] [facility] 2019-10-24 00:00:00 2019-10-24 00:00:00 Office Visit Clementine Floracolby [facility] Encounter/ [id number] [facility] 2019-10-24 00:00:00 2019-10-24 00:00:00 Office Visit Luis Mott [facility] Encounter/ [id number] [facility] 2019-10-06 15:30:00 2019-10-06 15:30:00 Outpatient R [facility] [id number] [facility] 2019-07-13 15:30:00 2019-07-13 15:30:00 Outpatient R [facility] [id number] [facility] 2019-07-13 14:59:32 2019-07-13 15:14:32 Nurse Visit Visit, [facility] Zaria Frost [facility] 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114 350.1.13.10 4.2.7.2.686 [id number] [facility] 2019-04-20 16:16:30 2019-04-20 17:38:39 Office Visit Tawnya Aguiar [facility] INJECTION MOULDING 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 1.2.840.114 350.1.13.10 4.2.7.2.686 [id number] 2019-04-20 00:00:00 2019-04-20 00:00:00 Orders Only Doctor Unassigned, Ruso [facility] 1.2.840.114 350.1.13.10 4.2.7.2.686 [id number] [facility] 2019-04-08 00:00:00 2019-04-08 00:00:00 Telephone Tawnya Aguiar [facility] INJECTION MOULDING 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 1.2.840.114 350.1.13.10 4.2.7.2.686 [id number] [facility] 2018-11-04 00:00:00 2018-11-04 00:00:00 Orders Only Doctor Unassigned, Ruso [facility] 1.2.840.114 350.1.13.10 4.2.7.2.686 [id number] [facility] 2018-10-13 09:17:17 2018-10-13 10:56:57 Office Visit Tawnya Aguiar [facility] INJECTION MOULDING 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 [facility] MATERNAL & [facility] 1.2.840.114 350.1.13.10 4.2.7.2.686 [id number] [facility] 2018-10-13 00:00:00 2018-10-13 00:00:00 Orders Only Doctor Unassigned, Ruso [facility] 1.2.840.114 350.1.13.10 4.2.7.2.686 [id number] [facility] Orders Only Doctor Unassigned, Ruso [facility] 1.2.840.114 350.1.13.10 4.2.7.2.686 [id number] [facility] Results Test Description Test Time Test Comments Results Result Co mments Source [facility] ([id number])2023-02-14 23:35:07* Test Item Value Reference Range Interpretation Comme nts NA (test code = 8083526169) 140 mmol/L 135-145 K (test code = 3726538233) 4.3 mmol/L 3.5-5.0 CL (test code = 3148737441) 106 mmol/L 98-108 CO2 TOTAL (test code = 2942917420) 25 mmol/L 23-31 AGAP (test code = 4715029034) 9 2-16 BUN (test code = 7867738289) 9 mg/dL 7-23 GLUCOSE (test code = 3882552094) 103 mg/dL 70-110 CREATININE (test code = 2216183303) 0.67 mg/dL 0.50-1.04 TOTAL BILI (test code = 1559286224) 0.4 mg/dL 0.1-1.1 CALCIUM (test code = 3419853919) 9.6 mg/dL 8.6-10.6 T PROTEIN (test code = 0010703079) 8.5 g/dL 6.3-8.2 H ALBUMIN (test code = 4361802915) 4.7 g/dL 3.5-5.0 ALK PHOS (test code = 6326073000) 117 U/L 34-122 ALTv (test code = 1742-6) 16 U/L 5-35 AST(SGOT) (test code = 9443483656) 34 U/L 13-40 eGFR (test code = 13665-9) 127.7 mL/min/1.73m2 CKD-EPI eGFR (2020). Assuming creatinine has been stable day-to-day for at least three months, the eGFR indicates Category G1 (>= 90 mL/min/1.73 m2) Lab Interpretation (test code = 73662-3) [facility]normal [facility] 23:34:26* Test Item Value Reference Range Interpretation Comme nts LIPASE (test code = 6487264903) 124 U/L 0-220 Lab Interpretation (test cod e = 08355-9) Normal [facility] PQBV4810-25-00 23:33:45* Test Item Value Reference Range Interpretation [...] g/dL 31.6-35.1 L RDW-SD (test code = 30005-6) 42.5 fL 39.0-49.9 RDW-CV (test code = 788-0) 16.0 % 12.0-15.5 H PLT (test code = 777-3) 424 See_Comment H [Automated message] The system which generated this result transmitted reference range: 166 - 358 10*3/?L. The reference range was not used to interpret this result as normal/abnormal. MPV (test code = 62195-9) 9.7 fL 9.5-12.9 NRBC/100 WBC (test code = 5510074773) 0.0 See_Comment [Automated message] The system which generated this result transmitted reference range: 0.0 - 10.0 /100 WBCs. The reference range was not used to interpret this result as normal/abnormal. NRBC x10^3 (test code = 4558731987) See_Comment [Automated message] The system which generated this result transmitted reference range: 10*3/?L. The reference range was not used to interpret this result as normal/abnormal. GRAN MAT (NEUT) % (test code = 770-8) 86.6 % IMM GRAN % (test code = 5143212402) 0.40 % LYMPH % (test code = 736-9) 9.1 % MONO % (test code = 5905-5) 3.2 % EOS % (test code = 713-8) 0.4 % BASO % (test code = 706-2) 0.3 % GRAN MAT x10^3(ANC) (test code = 5953506483) 10.38 10*3/uL 1.88-7.09 H IMM GRAN x10^3 (test code = 3684521481) 0.05 10*3/uL 0.00-0.06 LYMPH x10^3 (test code = 731-0) 1.09 10*3/uL 1.32-3.29 L MONO x10^3 (test code = 742-7) 0.38 10*3/uL 0.33-0.92 EOS x10^3 (test code = 711-2) 0.05 10*3/uL 0.03-0.39 BASO x10^3 (test code = 704-7) 0.03 10*3/uL 0.01-0.07 Lab Interpretation (test code = 69054-2) Abnormal [facility]2078-28-54 11:30:00* Test Item Value Reference Range Interpretation Comme nts POCT PREG (test code = 1605) Negative On board controls acceptable with C Line (test code = 3574) Yes POCT PREG LOT # (test code = 3575) [id number] POCT PREG TEST DATE ( test code = 3576) [facility] [id number] 11:30:00* Test Item Value Reference Range Interpretation Comme nts POCT PREG (test code = 1605) Negative On board controls acceptable with C Line (test code = 3574) Yes POCT PREG LOT # (test code = 3575) [id number] POCT PREG TEST DATE ( test code = 3576) [facility]. METABOLIC PANEL (04117)2021-10-25 00:56:04* Test Item Value Reference Range Interpretation Comme nts NA (test code = 5027663138) 140 mmol/L 135-145 K (test code = 3563606830) 4.4 mmol/L 3.5-5 CL (test code = 5898682409) 104 mmol/L 98-108 CO2 TOTAL (test code = 6809719603) 25 mmol/L 23-31 AGAP (test code = 3538288915) 2-16 BUN (test code = 1025616648) 10 mg/dL 7-23 GLUCOSE (test code = 9057762062) 98 mg/dL 70-110 CREATININE (test code = 8038884711) 0.67 mg/dL 0.5-1.04 TOTAL BILI (test code = 5074095050) 0.3 mg/dL 0.1-1.1 CALCIUM (test code = 8967300043) 9.5 mg/dL 8.6-10.6 T PROTEIN (test code = 0660387435) 7.3 g/dL 6.3-8.2 ALBUMIN (test code = 7451744160) 4.4 g/dL 3.5-5 ALK PHOS (test code = 4690267953) 110 U/L 34-122 ALTv (test code = 1742-6) 17 U/L 5-35 AST(SGOT) (test code = 8024910602) 35 U/L 13-40 eGFR (test code = 5637276535) mL/min/1.73m2 LIANA (test code = LIANA) Association [...] or urine or abnormalities in imaging tests). [facility] WITH [id number] 21:18:49* Test Item Value Reference Range Interpretation Comme nts WBC (test code = 6690-2) See_Comment [Automated 3C Plus] The system which generated this result transmitted reference range: 4.30 - 11.10 10*3/?L. The reference range was not used to interpret this result as normal/abnormal. RBC (test code = 789-8) See_Comment [Automated messa ge] The system which [...] g/dL 31.6-35.1 L RDW-SD (test code = 25242-6) 46.5 fL 39-49.9 RDW-CV (test code = 788-0) 17.2 % 12-15.5 H PLT (test code = 777-3) See_Comment H [Automated messa ge] The system which generated this result transmitted reference range: 166 - 358 10*3/?L. The reference range was not used to interpret this result as normal/abnormal. MPV (test code = 28551-7) 9.9 fL 9.5-12.9 NRBC/100 WBC (test code = 3373376135) See_Comment [Automated Viadeo ssage] The system which generated this result transmitted reference range: 0.0 - 10.0 /100 WBCs. The reference range was not used to interpret this result as normal/abnormal. NRBC x10^3 (test code = 0831848517) See_Comment [Automated messa ge] The system which generated this result transmitted reference range: 10*3/?L. The reference range was not used to interpret this result as normal/abnormal. GRAN MAT (NEUT) % (test code = 770-8) 52.1 % IMM GRAN % (test code = 8781072384) 0.20 % LYMPH % (test code = 736-9) 39.5 % MONO % (test code = 5905-5) 5.8 % EOS % (test code = 713-8) 1.8 % BASO % (test code = 706-2) 0.6 % GRAN MAT x10^3(ANC) (test code = 7896542216) 3.21 10*3/uL 1.88-7.09 IMM GRAN x10^3 (test code = 7612318433) 0-0.06 LYMPH x10^3 (test code = 731-0) 2.44 10*3/uL 1.32-3.29 MONO x10^3 (test code = 742-7) 0.36 10*3/uL 0.33-0.92 EOS x10^3 (test code = 711-2) 0.11 10*3/uL 0.03-0.39 BASO x10^3 (test code = 704-7) 0.04 10*3/uL 0.01-0.07 Lab Interpretation (test code = 29036-5) [facility] [id number] 21:07:04* Test Item Value Reference Range Interpretation Comme [facility] APTT Patient (test code = 3173-2) See_Comment [Automated message] The system which generated this result transmitted reference range: 23 - 38 Seconds. The reference range was not used to interpret this result as normal/abnormal. LIANA (test code = LIANA) The [facility] patient population mean normal value for aPTT is 30 seconds. Lab Interpretation (test code = 20900-2) Normal [facility] / [id number] 21:04:22* Test Item Value Reference Range Interpretation Comme [facility] PROTIME PATIENT (test code = 5964-2) See_Comment [Automated [employer] ge] The system which generated this result transmitted reference range: 12.0 - 14.7 Seconds. The reference range was not used to interpret this result as normal/abnormal. INR (test code = 6301-6) Normal INR <1.1; Warfarin Therapeutic range 2.0 to 3.0 or 2.5 to 3.5, depending upon the indications. Lab Interpretation (test code = 18997-4) Normal [facility]2019NCoV (COVID-19) SARS coronavirus 2 RNA (Presence) in Respiratory specimen by JENNY with probe detection (Other Lab) 2020-02-03 14:52:00* Test Item Value Reference Range Interpretation Comme [facility] 2019NCoV (COVID-19) SARS coronavirus 2 RNA (Presence) in Respiratory specimen by JENNY with probe detection (Other Lab) (test code = 76531-2) Not Detected Not Detected [facility]2019NCoV (COVID-19) SARS coronavirus 2 RNA (Presence) in Respiratory specimen by JENNY with probe detection (Other Lab)2020-01-25 16:11:00 * Test Item Value Reference Range Interpretation Comme [facility] 2018NCoV (COVID-19) SARS coronavirus 2 RNA (Presence) in Respiratory specimen by JENNY with probe detection (Other Lab) (test code = 26390-6) Not Detected Not Detected [facility]"
[2024-03-16 15:16] LABS: SARS-CoV-2 Antigen CONTROL BLUE LINE VIS/BG OK; SARS-CoV-2 Antigen Rapid Res Negative (Negative)
--- NOTE | 2024-03-16 15:37 | RAD REPORT ---
EXAM: Chest Pa And Lat (2 Views) HISTORY: 23 years Female CONGESTION COMPARISON: 07/31/2023 FINDINGS: LUNGS/PLEURA: The lungs are clear. No pleural effusions or pneumothorax. No pulmonary edema. MEDIASTINUM: The mediastinal silhouette is within normal limits. CARDIAC: The cardiac silhouette is within normal limits. UPPER ABDOMEN: No significant abnormality. BONES: No acute abnormality. LINES/TUBES/OTHER: N/A IMPRESSION: No evidence of acute cardiopulmonary disease.
--- NOTE | 2024-03-16 15:44 | EDPHYS ---
Physician Documentation [facility] Name: Althea Sumner Age: 23 yrs Sex: Female : 2000 Arrival Date: 03/16/2024 Time: 13:53 Bed IW3 Private MD: ED Physician Yue Ford HPI: 03/16 14:56 This 23 yrs old Female presents to ER via Ambulatory with complaints of Flu sb4 Symptoms. 14:56 headache, nausea, cough, congestion x 24 hours. work sent her home and wanted her to be sb4 evaluated. mild pains in chest with coughing. no sob. no vomiting or diarrhea. coworkers are sick with similar symptoms. 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 - Infectious Disease History:: Denies. - Social history:: Smoking status: Patient denies any tobacco usage or history of. ROS: 14:56 Constitutional: Negative for fever, chills, and weight loss, sb4 14:56 ENT: Positive for sore throat, 14:56 Respiratory: Positive for cough, 14:56 Abdomen/GI: Positive for nausea, 14:56 All other systems are negative, Exam: 14:56 Constitutional: This is a well developed, well nourished patient who is awake, alert, sb4 and in no acute distress. Head/Face: Normocephalic, atraumatic. Eyes: Extra-ocular motions intact. Periorbital areas with no swelling, redness, or edema. ENT: Mucous membranes moist. Cardiovascular: Regular rate and rhythm with a normal S1 and S2. Respiratory: No increased work of breathing, no retractions or nasal flaring. Abdomen/GI: Soft, non-tender, no distension. Skin: Warm, dry with normal turgor. Normal color with no rashes, no lesions, and no evidence of cellulitis. Vital Signs: 14:32 BP 131 / 89; Pulse 81; Resp 15; Temp 97.9; Pulse Ox 100% ; jl7 MDM: 14:21 Medical Screening Exam initiated sb4 15:44 Data reviewed: vital signs, nurses notes, lab test result(s), radiologic studies, and sb4 as a result, I will discharge patient. Counseling: I had a detailed discussion with the patient and/or guardian regarding the historical points, exam findings, and any diagnostic results supporting the discharge/admit diagnosis, lab results, radiology results, to return to the emergency department if symptoms worsen or persist or if there are any questions or concerns that arise at home. 03/16 14:37 Order name: SARS RAPID; Complete Time: 15:20 sb4 03/16 14:37 Order name: Flu; Complete Time: 15:20 sb4 03/16 14:38 Order name: SARS RAPID ss 03/16 14:37 Order name: Chest Pa And Lat (2 Views) XRAY; Complete Time: 15:43 sb4 Administered Medications: No medications were administered Disposition Summary: 03/16/24 15:44 Discharge Ordered Notes: Location: Home sb4 Problem: new sb4 Symptoms: are unchanged sb4 Condition: Stable sb4 Diagnosis - Viral infection, unspecified sb4 Followup: sb4 - With: Emergency Department - When: As needed - Reason: Trouble breathing, Worsening of condition Discharge Instructions: - Discharge Summary Sheet sb4 - Viral Illness, Adult sb4 Forms: - Work release form sb4 - Patient Portal Instructions sb4 - Leadership Thank You Letter sb4 Prescriptions: - Zofran 4 mg Oral tablet - take 1 tablet ORAL route every 6 hours As needed; 12 tablet; Refills: 0, sb4 Product Selection Permitted Signatures: Dispatcher [employer] EDAnita Whitaker RN RN Sabra Llanos PA-C PAJajaC sb4 Corrections: (The following items were deleted from the chart) 14:37 14:37 SARS-COV-2 Antigen Rapid+I.LAB.BRZ ordered. EDMS EDMS 14:37 14:37 Influenza Screen (A \T\ B)+BA.LAB.BRZ ordered. EDMS EDMS 14:37 14:37 Group A Streptococcus Rapid Sc+BA.LAB.BRZ ordered. EDMS EDMS
--- NOTE | 2024-03-16 15:44 | ER ---
Nurse's Notes [facility] Name: Althea Sumner Age: 23 yrs Sex: Female : 2000 Arrival Date: 03/16/2024 Time: 13:53 Bed IW3 Private MD: Diagnosis: Viral infection, unspecified Presentation: 03/16 14:32 Chief complaint: Patient states: cough, congestion, achy x 1 day. Coronavirus screen: jl7 Client presents with at least one sign or symptom that may indicate coronavirus-19. Ebola Screen: No symptoms or risks identified at this time. Initial Sepsis Screen: Does the patient meet any 2 criteria? No. Patient's initial sepsis screen is negative. Does the patient have a suspected source of infection? No. Patient's initial sepsis screen is negative. Risk Assessment: Do you want to hurt yourself or someone else? Patient reports no desire to harm self or others. Onset of symptoms was March 15, 2024. 14:32 Method Of Arrival: Ambulatory jl7 14:32 Acuity: SHENG 4 jl7 Triage Assessment: 14:33 General: Appears in no apparent distress. uncomfortable, Behavior is calm, cooperative, jl7 appropriate for age. Pain: Denies pain. 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 - Infectious Disease History:: Denies. - Social history:: Smoking status: Patient denies any tobacco usage or history of. Assessment: 16:52 Reassessment: Patient appears in no apparent distress at this time. Patient and/or jl7 family updated on plan of care and expected duration. Pain level reassessed. Patient is alert, oriented x 3, equal unlabored respirations, skin warm/dry/pink. Vital Signs: 14:32 BP 131 / 89; Pulse 81; Resp 15; Temp 97.9; Pulse Ox 100% ; jl7 ED Course: 13:55 Patient arrived in ED. mr 13:55 Sabra Jung [facility]C is [facility]. sb4 13:55 Yue Ford MD is Attending Physician. sb4 14:33 Triage completed. jl7 14:33 Arm band placed on right wrist. jl7 15:32 Chest Pa And Lat (2 Views) XRAY In Process Unspecified. EDMS 16:52 No provider procedures requiring assistance completed. Patient did not have IV access jl7 during this emergency room visit. Administered Medications: No medications were administered Outcome: 15:44 Discharge ordered by MD. sb4 16:52 Discharged to home ambulatory, jl7 16:52 Condition: good 16:52 Condition: good 16:52 Discharge instructions given to patient, Instructed on discharge instructions, follow up and referral plans. medication usage, Demonstrated understanding of instructions, follow-up care, medications, Prescriptions given X 1, 16:53 Patient left the ED. jl7 Signatures: Dispatcher [employer] EDMO Francie Wren, Reg Reg Anita Lagne, RN RN jl7 Sabra Jung, FRANK PAIsabella sb4
[2024-03-16 20:04] VITALS: BP 131/89; TEMP 97.9; O2SAT 100
== END 2024-03-16 16:53 | disposition home or self-care (01) ==
LOC: ER 13:53
DX: B34.9 Viral infection, unspecified (principal); Z11.52 Encounter for screening for COVID-19
CPT/HCPCS: 36415; 71046; 87804; 87811; 99283